=== PATIENT | male | born 1970 | race Caucasian/White ===

== ENCOUNTER 2016-09-15 14:33 | Emergency (ER) | payer MEDICARE ==
--- NOTE | 2016-09-15 15:21 | ERPHSYRPT ---
- History of Present Illness Time Seen by Provider: 09/15/16 15:16 Source: patient Exam Limitations: no limitations Patient Subjective Stated Complaint: Pt states he thinks he broke his left hand 2 days ago. Does not recall an injury but thinks he might have punched a wall in his sleep. Triage Nursing Assessment: Pt alert and oriented x3. skin pink warm and dry. afebrile. slight swelling noted to left hand. no bruising noted. radial pulse present and regular Physician History: Unsure of what happened to L hand. C/O L hand pain for past 2-3 days. Patient uninsured how he injured his left hand, but thinks that he might have hit a wall besides his bed during his sleep. Patient notes swelling and pain to the fifth metacarpal. States pain is worse especially with movement and using his hands. Denies any L wrist, elbow or shoulder injury. Occurred: days ago (3) Method of Injury: unknown Quality: intermittent, aching, dullness Severity of Pain-Max: moderate Severity of Pain-Current: moderate Extremities Pain Location: hand: left Modifying Factors: Improves With: immobilization (improves), movement (worsens) Associated Symptoms: none Allergies/Adverse Reactions: amoxicillin [Amoxicillin] Allergy (Severe, Verified 09/15/16 15:09) celecoxib [From Celebrex] Allergy (Severe, Verified 09/15/16 15:09) Penicillins Allergy (Severe, Verified 09/15/16 15:09) TROUBLE BREATHING Shellfish *RETIRED-09/04/12 [Shellfish] Allergy (Severe, Verified 09/15/16 15:09 ) Sulfa (Sulfonamide Antibiotics) [Sulfa(Sulfonamide Antibiotics)] Allergy (Severe , Verified 09/15/16 15:09) Rash ernesto Allergy (Verified 09/15/16 15:09) venom-honey bee [bee venom (honey bee)] Allergy (Verified 09/15/16 15:09) Home Medications: Etodolac 400 mg [Lodine 400 mg] 400 mg PO BID 10/10/13 [History] Gabapentin 600 mg PO QID 10/10/13 [History] Glyburide [Diabeta] 10 mg PO BID 10/10/13 [History] Metformin HCl 1000 mg [Glucophage 1000 MG] 1,000 mg PO BID 10/10/13 [History] Omeprazole 40 mg PO DAILY 10/10/13 [History] Canagliflozin [Invokana] 300 mg PO DAILY 06/25/14 [History] Hydroxyzine HCl 25 mg [Atarax 25 mg] 25 mg PO Q6H PRN PRN 06/25/14 [ History] Oxycodone HCl/Acetaminophen [Percocet 10-325 mg Tablet] 1 tab PO Q4-6HPRN PRN MDD 50mg 09/11/16 [History] Dulaglutide [Trulicity] 0.75 mg SQ WEEKLY 09/15/16 [History] Simvastatin [Zocor] 40 mg PO DAILY 09/15/16 [History] Hx Tetanus, Diphtheria Vaccination/Date Given: Yes (<10) Hx Influenza Vaccination/Date Given: No Hx Pneumococcal Vaccination/Date Given: No - Review of Systems Constitutional: No Fever, No Chills Eyes: No Symptoms Ears, Nose, & Throat: No Symptoms Respiratory: No Cough, No Dyspnea Cardiac: No Chest Pain, No Edema, No Syncope Abdominal/Gastrointestinal: No Abdominal Pain, No Nausea, No Vomiting, No Diarrhea Genitourinary Symptoms: No Dysuria Musculoskeletal: Other (L 5th MC swelling), No Back Pain, No Neck Pain Skin: No Rash Neurological: No Dizziness, No Focal Weakness, No Sensory Changes Psychological: No Symptoms Endocrine: No Symptoms All Other Systems: Reviewed and Negative - Past Medical History Pertinent Past Medical History: Yes Neurological History: Other ENT History: No Pertinent History Cardiac History: No Pertinent History, High Cholesterol Respiratory History: Sleep Apnea Endocrine Medical History: Diabetes Type II Musculoskeletal History: Arthritis, Fibromyalgia, Other GI Medical History: GERD History: No Pertinent History Psycho-Social History: Attention Deficit Disorder Male Reproductive Disorders: No Pertinent History Other Medical History: sleep apnea - insomnia - Past Surgical History Past Surgical History: Yes Neuro Surgical History: No Pertinent History Cardiac: No Pertinent History Respiratory: No Pertinent History Gastrointestinal: Hernia Repair Genitourinary: No Pertinent History Musculoskeletal: Joint Replacement, Orthopedic Surgery Male Surgical History: No Pertinent History Other Surgical History: knee x 2 NEDA - L shoulder - Social History Smoking Status: Former smoker How long have you smoked: 30 years Exposure to second hand smoke: No Alcohol Use: None Drug Use: none Patient Lives Alone: No Significant Family History: diabetes - Nursing Vital Signs Nursing Vital Signs: Initial Vital Signs Temperature 98.4 F Temperature Source Oral Pulse Rate 94 Respiratory Rate 16 Blood Pressure [Right Arm] 133/74 Pain Intensity 8 - Physical Exam General Appearance: alert Eyes, Ears, Nose, Throat Exam: moist mucous membranes Neck Exam: non-tender, supple Cardiovascular/Respiratory Exam: chest non-tender, normal breath sounds, regular rate/rhythm, no respiratory distress Abdominal Exam: non-tender, No guarding Back Exam: normal inspection, No vertebral tenderness Shoulder Exam: normal inspection, non-tender, no evidence of injury, normal ROM Elbow/Forearm Exam: normal inspection, non-tender, no evidence of injury, normal ROM Wrist Exam: normal inspection, non-tender, no evidence of injury, normal ROM Hand Exam: soft tissue tenderness (5th MC area), swelling (5th MC area) Neuro/Tendon Exam: normal sensation, normal motor functions Mental Status Exam: alert, oriented x 3, cooperative Skin Exam: normal color, warm, dry SpO2: 96 Oxygen Delivery: Room Air - Course Nursing assessment & vital signs reviewed: Yes - Radiology Exams Left Hand X-ray Interpretation: Teleradiologist Report, Negative, No Fracture Ordered Tests: Active Orders 24 hr Category Date Time Status HAND (MINIMUM 3 VIEWS) Stat Exams 09/15/16 15:21 Completed - Progress Progress: unchanged Counseled pt/family regarding: diagnosis, rad results - Departure Time of Disposition: 15:54 Departure Disposition: Home Clinical Impression: Contusion of left hand Condition: Stable Critical Care Time: No Instructions: Contusion Additional Instructions: Ice, elevate to decrease pain. Return for worse pain, swelling, numbness or any problems
--- NOTE | 2016-09-15 15:45 | XRAY ---
Indication: Fifth digit pain. No known injury. Comparison: February 11, 2008. 3 views of the left hand demonstrates new ring at the base of the fourth finger. Again no bony, articular, or soft tissue abnormalities.
[2016-09-15 16:27] VITALS: BP 132/83; PULSE 98; O2SAT 97
== END 2016-09-15 16:28 | disposition home or self-care (01) ==
LOC: ED 14:33
DX: S60.222A Contusion of left hand, initial encounter (principal)
CPT/HCPCS: 73130; 99282; 99283

== ENCOUNTER 2017-04-20 02:37 | Inpatient (IN) | payer MEDICARE ==
--- NOTE | 2017-04-20 03:21 | ERPHSYRPT ---
- History of Present Illness Time Seen by Provider: 04/20/17 03:00 Source: patient Exam Limitations: no limitations Patient Subjective Stated Complaint: pt states he has an abcess in his perineal area. Triage Nursing Assessment: pt alert and oriented. answers questions approp. pt ambulatory with steady gait noted. respirations nonlabored with lungs cta. skin pink warm and dry. redness and warmth noted to bo area with warmth noted. Physician History: Pt noticed small, painful lump in the perineal area about one week ago.He states it has increased in size and became painful over the past few days, denies fever, chills, abdominal pain, nausea, vomiting, difficulty urinating, or other complaints. He was started on Doxycycline by his doctor 4 days ago for suspected Lyme's disease. Timing/Duration: week(s) (1) Quality: painful Severity: moderate Location: perirectal Possible Causes: no cause identified Modifying Factors: Improves With: other (none) Associated Symptoms: denies symptoms Allergies/Adverse Reactions: amoxicillin [Amoxicillin] Allergy (Severe, Verified 04/20/17 02:57) celecoxib [From Celebrex] Allergy (Severe, Verified 04/20/17 02:57) Penicillins Allergy (Severe, Verified 04/20/17 02:57) TROUBLE BREATHING Shellfish *RETIRED-09/04/12 [Shellfish] Allergy (Severe, Verified 04/20/17 02:57 ) Sulfa (Sulfonamide Antibiotics) [Sulfa(Sulfonamide Antibiotics)] Allergy (Severe , Verified 04/20/17 02:57) Rash ernesto Allergy (Verified 04/20/17 02:57) venom-honey bee [bee venom (honey bee)] Allergy (Verified 04/20/17 02:57) Home Medications: Gabapentin 600 mg PO QID 10/10/13 [History] Glyburide [Diabeta] 10 mg PO BID 10/10/13 [History] Metformin HCl 1000 mg [Glucophage 1000 MG] 1,000 mg PO BID 10/10/13 [History] Omeprazole 40 mg PO DAILY 10/10/13 [History] Hydroxyzine HCl 25 mg [Atarax 25 mg] 25 mg PO Q6H PRN PRN 06/25/14 [ History] Simvastatin [Zocor] 40 mg PO DAILY 09/15/16 [History] Tizanidine HCl [Zanaflex] 1 - 2 tab PO Q8HPRN PRN 10/10/16 [History] Oxycodone HCl/Acetaminophen [Percocet 7.5-325 mg Tablet] 1 each PO Q4-6HPRN PRN 04/20/17 [History] Hx Tetanus, Diphtheria Vaccination/Date Given: Yes Hx Influenza Vaccination/Date Given: No Hx Pneumococcal Vaccination/Date Given: No Immunizations Up to Date: Yes - Review of Systems Constitutional: No Symptoms Skin: Other (perineal lump, possible abscess. ) All Other Systems: Reviewed and Negative - Past Medical History Pertinent Past Medical History: Yes Neurological History: Other ENT History: No Pertinent History Cardiac History: No Pertinent History, High Cholesterol, Hypertension Respiratory History: Sleep Apnea Endocrine Medical History: Diabetes Type II Musculoskeletal History: Arthritis, Fibromyalgia, Other GI Medical History: GERD History: No Pertinent History Psycho-Social History: Attention Deficit Disorder Male Reproductive Disorders: No Pertinent History Other Medical History: sleep apnea - insomnia - Past Surgical History Past Surgical History: Yes Neuro Surgical History: No Pertinent History Cardiac: No Pertinent History Respiratory: No Pertinent History Gastrointestinal: Hernia Repair Genitourinary: No Pertinent History Musculoskeletal: Joint Replacement, Orthopedic Surgery Male Surgical History: No Pertinent History Other Surgical History: knee x 2 NEDA - L shoulder - Social History Smoking Status: Former smoker How long have you smoked: 30 years Exposure to second hand smoke: No Alcohol Use: None Drug Use: none Patient Lives Alone: No Significant Family History: diabetes - Nursing Vital Signs Nursing Vital Signs: Initial Vital Signs Temperature 98.1 F 04/20/17 02:43 Pulse Rate 117 H 04/20/17 02:43 Respiratory Rate 18 04/20/17 02:43 Blood Pressure 173/103 04/20/17 02:43 O2 Sat by Pulse Oximetry 95 04/20/17 02:43 Pain Scale Pain Intensity 6 - Physical Exam General Appearance: no apparent distress Eye Exam: eyes nml inspection Ears, Nose, Throat Exam: normal ENT inspection Neck Exam: normal inspection, non-tender, supple Respiratory Exam: normal breath sounds, lungs clear Cardiovascular Exam: regular rate/rhythm, normal heart sounds, normal peripheral pulses Gastrointestinal/Abdomen Exam: soft, normal bowel sounds, No tenderness, No distention, No mass, No guarding Male Genitalia Exam: normal genitalia Rectal Exam: normal rectal tone, hemorrhoids (small external hemorrhoids, noninflamed), No mass Back Exam: normal inspection, No CVA tenderness Extremity Exam: normal inspection, No calf tenderness Neurologic Exam: alert, oriented x 3, cooperative, normal mood/affect Skin Exam: normal color, warm, dry, other (2-3 cm deep seated tender hard lump in the perineal area, little bit to the left from the midline, no skin redness, edema or lesion, no fluctuation.), No rash, No petechiae SpO2: 95 Oxygen Delivery: Room Air Procedures - Incision and Drainage Timeout: Performed Site: left Anesthesia: 1% Lidocaine cc's of anesthesia: 5 Blade Size: 15 I & D Procedure: betadine prep, sterile drapes applied, culture obtained, other (obtained few drops of pus with an 18 gauge needle, attempted to I&D but the abscess is deep seated towards the rectuim, unable to achieve good exploration in local anesthesia, after making 0.5 cm incision with a #15 scalpel, no severe bleeding noted, easily controlled, 1/4 minch packing placed, no pus obtained, was unable to reach the abscess with the scalpel and scissor after carfully dissecting the subcutaneous tissues with scissor and a needleholder.) Results: small amount pus Progress: Pt tolerated the procedure well, no severe bleeding, or injuries noticed. - CT Exams Pelvis CT Interpretation: Other (2.5 cm perianal/perineal abscess on noncontrast CT) Ordered Tests: Active Orders 24 hr Category Date Time Status PELVIS WITHOUT CONTRAST [CT] Stat Exams 04/20/17 03:07 Taken CBC W DIFF Stat Lab 04/20/17 03:25 Completed CMP Stat Lab 04/20/17 03:25 Completed Occult Blood,Stool Other Stat Lab 04/20/17 03:25 Completed PROTIME WITH INR Stat Lab 04/20/17 03:25 Completed UA W/ MICROSCOPIC Stat Lab 04/20/17 03:31 Completed Medication Summary Generic Name Dose Route Start Last Admin Trade Name Freq PRN Reason Stop Dose Admin Metronidazole 500 mg in 100 mls @ 200 mls/hr 04/20/17 05:19 04/20/17 05:31 Flagyl 500 Mg Ivpb IV 04/20/17 05:48 200 mls/hr STAT STA Administration Vancomycin HCl 1 gm in 250 mls @ 167 mls/hr 04/20/17 05:19 04/20/17 05:31 Vancomycin 1gm/ Ns 250ml IV 04/20/17 06:48 167 mls/hr STAT ONE Administration Morphine Sulfate 4 mg 04/20/17 05:19 Morphine Sulfate 4 Mg Inj IV 04/25/17 05:18 Q4H PRN PRN PAIN Discontinued Medications Generic Name Dose Route Start Last Admin Trade Name Freq PRN Reason Stop Dose Admin Metronidazole Confirm 04/20/17 05:28 Flagyl 500 Mg Ivpb Administered 04/20/17 05:29 Dose 500 mg in 100 mls @ ud IV .STK-MED ONE Vancomycin HCl Confirm 04/20/17 05:28 Vancomycin 1gm/ Ns 250ml Administered 04/20/17 05:29 Dose 250 mls @ ud IV .STK-MED ONE Lidocaine HCl Confirm 04/20/17 04:41 Xylocaine 1% Hcl 20 Ml Mdv Administered 04/20/17 04:42 Dose 5 ml .ROUTE .STK-MED ONE Ondansetron HCl 4 mg 04/20/17 05:19 Zofran 4 Mg/2 Ml Vial IV 04/20/17 05:20 STAT ONE Lab/Rad Data: Laboratory Result Diagrams 04/20/17 03:25 04/20/17 03:25 Laboratory Results 04/20/17 04/20/17 04/20/17 Range/Units 03:31 03:25 03:25 WBC (4.0-10.5) K/mm3 RBC (4.1-5.6) M/mm3 Hgb (12.5-18.0) gm/dl Hct (42-50) % MCV (78-100) fl MCH (26-32) pg MCHC (32-36) g/dl RDW (11.5-14.0) % Plt Count (150-450) K/mm3 MPV (6-9.5) fl Gran % (36.0-66.0) % Lymphocytes % (24.0-44.0) % Monocytes % (0.0-12.0) % Eosinophils % (0.00-5.0) % Basophils % (0.0-0.4) % Basophils # (0-0.4) INR 1.15 (0.8-3.0) Sodium (136-145) mEq/L Potassium (3.5-5.1) mEq/L Chloride (98-107) mEq/L Carbon Dioxide (21-32) mEq/L Anion Gap (5-15) MEQ/L BUN (9-20) mg/dL Creatinine (0.55-1.30) mg/dl Estimated GFR ML/MIN Glucose (70-110) MG/DL Calcium (8.5-10.1) mg/dL Total Bilirubin (0.2-1.0) mg/dL AST (15-37) U/L ALT (12-78) U/L Alkaline Phosphatase (46-116) U/L Serum Total Protein (6.4-8.2) gm/dL Albumin (3.4-5.0) g/dL Ur Collection Type VOID Urine Color YELLOW (YELLOW) Urine Appearance CLEAR (CLEAR) Urine pH 5.0 (5-6) Ur Specific [place] 1.020 (1.005-1.025) Urine Protein NEGATIVE (Negative) Urine Ketones SMALL (NEGATIVE) Urine Blood TRACE NON-HEM (0-5) Tomás/ul Urine Nitrite NEGATIVE (NEGATIVE) Urine Bilirubin NEGATIVE (NEGATIVE) Urine Urobilinogen NORMAL (0-1) mg/dL Ur Leukocyte Esterase NEGATIVE (NEGATIVE) Urine Microscopic RBC 2-5 (0-2) /HPF Urine Microscopic WBC 0-2 (0-5) /HPF Ur Epithelial Cells FEW (FEW) /HPF Urine Bacteria FEW (NEGATIVE) /HPF Urine Mucus SLIGHT (NEGATIVE) /HPF Urine Culture Reflexed NO (NO) Urine Glucose 1000 (NEGATIVE) mg/dL Stool Occult Blood NEGATIVE (Negative) Specimen Received 04/20/17 0330 04/20/17 04/20/17 Range/Units 03:25 03:25 WBC 10.9 H (4.0-10.5) K/mm3 RBC 4.67 (4.1-5.6) M/mm3 Hgb 13.6 (12.5-18.0) gm/dl Hct 39.7 L (42-50) % MCV 85.0 (78-100) fl MCH 29.1 (26-32) pg MCHC 34.3 (32-36) g/dl RDW 12.8 (11.5-14.0) % Plt Count 259 (150-450) K/mm3 MPV 9.2 (6-9.5) fl Gran % 61.0 (36.0-66.0) % Lymphocytes % 24.9 (24.0-44.0) % Monocytes % 12.0 (0.0-12.0) % Eosinophils % 1.8 (0.00-5.0) % Basophils % 0.3 (0.0-0.4) % Basophils # 0.03 (0-0.4) INR (0.8-3.0) Sodium 137 (136-145) mEq/L Potassium 3.5 (3.5-5.1) mEq/L Chloride 101 (98-107) mEq/L Carbon Dioxide 25.5 (21-32) mEq/L Anion Gap 14.1 (5-15) MEQ/L BUN 8 L (9-20) mg/dL Creatinine 0.94 (0.55-1.30) mg/dl Estimated GFR > 60 ML/MIN Glucose 272 H (70-110) MG/DL Calcium 9.3 (8.5-10.1) mg/dL Total Bilirubin 0.40 (0.2-1.0) mg/dL AST 11 L (15-37) U/L ALT 48 (12-78) U/L Alkaline Phosphatase 49 (46-116) U/L Serum Total Protein 7.6 (6.4-8.2) gm/dL Albumin 3.5 (3.4-5.0) g/dL Ur Collection Type Urine Color (YELLOW) Urine Appearance (CLEAR) Urine pH (5-6) Ur Specific [place] (1.005-1.025) Urine Protein (Negative) Urine Ketones (NEGATIVE) Urine Blood (0-5) Tomás/ul Urine Nitrite (NEGATIVE) Urine Bilirubin (NEGATIVE) Urine Urobilinogen (0-1) mg/dL Ur Leukocyte Esterase (NEGATIVE) Urine Microscopic RBC (0-2) /HPF Urine Microscopic WBC (0-5) /HPF Ur Epithelial Cells (FEW) /HPF Urine Bacteria (NEGATIVE) /HPF Urine Mucus (NEGATIVE) /HPF Urine Culture Reflexed (NO) Urine Glucose (NEGATIVE) mg/dL Stool Occult Blood (Negative) Specimen Received - Progress Progress: improved Progress Note: 04/20/17 05:38 Pt has been afebrile, no sign of severe pain or distress, I discussed our findings with DR Menezes, general surgeon, he agreed to see patient today. I also called Dr Hamilton, who is covering Dr Morton, discussed the results and patients current condition, he agreed to admit him to medical surgical bed. Pt and his were informed, they agreed. Discussed with : Maryanne Hamilton Will see patient in: hospital (full admit) - Departure Time of Disposition: 05:40 Departure Disposition: In-patient Admission Clinical Impression: Abscess of deep perineal space Condition: Stable Critical Care Time: No Referrals: TERESA MORTON [Primary Care Provider] -
[2017-04-20 03:29] LABS: BASOPHIL % 0.3 % (0.0-0.4); Eosinophil % 1.8 % (0.00-5.0); Lymphocytes % 24.9 % (24.0-44.0); Mean Corpuscular Hemoglobin 29.1 pg (26-32); Mean Platelet Volume 9.2 fl (6-9.5); Platelet Count 259 K/mm3 (150-450); Red Blood Count 4.67 M/mm3 (4.1-5.6); Red Cell Distribution Width 12.8 % (11.5-14.0); White Blood Count 10.9 K/mm3 (4.0-10.5)
[2017-04-20 03:43] LABS: Bilirubin NEGATIVE (NEGATIVE); Blood TRACE NON-HEM Ery/ul (0-5); COMPLETE URINE MICROSCOPIC? YES; Collection Type VOID; Glucose 1000 mg/dL (NEGATIVE); Leukocyte Esterase NEGATIVE (NEGATIVE)
[2017-04-20 03:44] LABS: ADD URINE CULTURE? NO (NO); Bacteria FEW /HPF (NEGATIVE); Epithelial Cells FEW /HPF (FEW); Mucus SLIGHT /HPF (NEGATIVE); WBC 0-2 /HPF (0-5)
[2017-04-20 03:49] LABS: ALBUMIN 3.5 g/dL (3.4-5.0); ALKALINE PHOSPHATASE 49 U/L (46-116); ANION GAP 14.1 MEQ/L (5-15); BLOOD UREA NITROGEN 8 mg/dL (9-20); CHLORIDE 101 mEq/L (98-107); Carbon Dioxide 25.5 mEq/L (21-32); Glucose 272 MG/DL (70-110); Potassium 3.5 mEq/L (3.5-5.1); SGOT/AST 11 U/L (15-37); SGPT/ALT 48 U/L (12-78); SODIUM 137 mEq/L (136-145); Total Protein 7.6 gm/dL (6.4-8.2)
[2017-04-20 03:51] LABS: INR 1.15 (0.8-3.0); PROTIME 12.8 SECONDS (8.83-12.87)
[2017-04-20] MEDS ORDERED: XYLOCAINE 1% HCL 20 ML MDV ONE (04:41)
[2017-04-20] MEDS ORDERED: Vancomycin 1GM/ Ns 250ML*** 1 GM/250 ML IVPB IV ONE (05:19)
[2017-04-20] MEDS ORDERED: FLAGYL 500 MG IVPB 500 MG/100 ML BAG IV STA (05:19)
[2017-04-20] MEDS ORDERED: Zofran 4 MG/2 ML VIAL IV ONE (05:19)
[2017-04-20] MEDS ORDERED: MORPHINE SULFATE 4 MG INJ IV PRN (05:19)
[2017-04-20] MEDS ORDERED: FLAGYL 500 MG IVPB 500 MG/100 ML BAG IV ONE (05:28)
[2017-04-20] MEDS ORDERED: Vancomycin 1GM/ Ns 250ML*** 250 ML IV ONE (05:28)
[2017-04-20] MEDS ORDERED: MORPHINE SULFATE 4 MG INJ ONE (05:37)
[2017-04-20] MEDS ORDERED: Zofran 4 MG/2 ML VIAL IV PRN (07:00)
[2017-04-20] MEDS: Sodium Chloride 0.9% 1000 ML 1,000 ML IV SCH ×2 (08:35→21:46)
--- NOTE | 2017-04-20 09:21 | XRAY ---
Indication: Perineal abscess. Pain. Multiple contiguous axial images obtained through the pelvis without contrast. Known IV contrast allergy. Comparison: None. In the left perineal/perianal region, there is a small focus of subcutaneous induration measuring 2.4 x 1.3 cm in axial dimension. Tiny fluid and air bubble present concerning for abscess. There are a few small bilateral inguinal lymph nodes, none pathologically enlarged. Visualized noncontrasted bowel loops appear nonobstructed. Normal appendix. Visualized inferior liver, inferior kidneys, ureters, and bladder appear unremarkable for noncontrast exam. Mild aortoiliac calcifications without aneurysm. No intrapelvic free fluid/air. Osseous structures intact. Impression: Small left perineal/perianal abscess as detailed. Comment: Preliminary interpretation was made by [facility]. No discrepancy. CT DI 23.69
--- NOTE | 2017-04-20 09:22 | PCM.HP ---
History of Present Illness - Chief Complaint Chief Complaint: Perineal Abscess History of Present Illness: is a 46 year old male diabetic who sees Dr Morton, he has had pain, swelling and tenderness behind his scortum for the past week. no fever or drainage, denies cough, no chest pain or shortness of breath. - Review of Systems Constitutional: No Fever, No Chills Respiratory: No Cough, No Short Of Breath Cardiac: No Chest Pain, No Edema, No Syncope Abdominal/Gastrointestinal: No Abdominal Pain, No Nausea, No Vomiting, No Diarrhea Skin: Other (abscess behind scrotum) All Other Systems: Reviewed and Negative Medications & Allergies Home Medications: Home Medication List Gabapentin 600 mg PO QID 10/10/13 [History Confirmed 04/20/17] Glyburide [Diabeta] 10 mg PO BID 10/10/13 [History Confirmed 04/20/17] Metformin HCl 1000 mg [Glucophage 1000 MG] 1,000 mg PO BID 10/10/13 [History Confirmed 04/20/17] Omeprazole 40 mg PO DAILY 10/10/13 [History Confirmed 04/20/17] Hydroxyzine HCl 25 mg [Atarax 25 mg] 25 mg PO Q6H PRN PRN 06/25/14 [ History Confirmed 04/20/17] Simvastatin [Zocor] 40 mg PO DAILY 09/15/16 [History Confirmed 04/20/17] Tizanidine HCl [Zanaflex] 1 - 2 tab PO Q8HPRN PRN 10/10/16 [History Confirmed ] Oxycodone HCl/Acetaminophen [Percocet 7.5-325 mg Tablet] 1 each PO Q4-6HPRN PRN 04/20/17 [History Confirmed 04/20/17] Allergies/Adverse Reactions: Allergies Allergy/AdvReac Type Severity Reaction Status Date / Time amoxicillin [Amoxicillin] Allergy Severe Verified 04/20/17 02:57 celecoxib [From Celebrex] Allergy Severe Verified 04/20/17 02:57 Penicillins Allergy Severe TROUBLE Verified 04/20/17 02:57 BREATHING Shellfish *RETIRED-09/04/12 Allergy Severe Verified 04/20/17 02:57 [Shellfish] Sulfa (Sulfonamide Allergy Severe Rash Verified 04/20/17 02:57 Antibiotics) [Sulfa(Sulfonamide Antibiotics)] ernesto Allergy Verified 04/20/17 02:57 venom-honey bee Allergy Verified 04/20/17 02:57 [bee venom (honey bee)] - Past Medical History Past Medical History: Yes Neurological History: Other ENT History: No Pertinent History Cardiac History: No Pertinent History, High Cholesterol, Hypertension Respiratory History: Sleep Apnea Endocrine Medical History: Diabetes Type II Musculoskelatal History: Arthritis, Fibromyalgia, Other GI Medical History: GERD History: No Pertinent History Pyscho-Social History: Attention Deficit Disorder Male Reproductive Disorders: No Pertinent History Comment: sleep apnea - insomnia - Past Surgical History Past Surgical History: Yes Neuro Surgical History: No Pertinent History Cardiac History: No Pertinent History Respiratory Surgery: No Pertinent History GI Surgical History: Hernia Repair Genitourinary Surgical Hx: No Pertinent History Musculskeletal Surgical Hx: Joint Replacement, Orthopedic Surgery Male Surgical History: No Pertinent History Other Surgical History: knee x 2 NEDA - L shoulder - Social History Smoking Status: Former smoker How long have you smoked: quit 6 yea Exposure to second hand smoke: No Alcohol: None Drug Use: none Significant Family History: diabetes - Physical Exam Vital Signs: Vital Signs - 24 hr Temp Pulse Resp BP Pulse Ox 04/20/17 07:40 98.1 F 98 H 132/82 95 04/20/17 05:41 95 04/20/17 05:09 98 H 18 150/88 98 04/20/17 03:59 112 H 18 150/87 95 04/20/17 02:43 98.1 F 117 H 18 173/103 95 General Appearance: no apparent distress, alert Eye Exam: PERRL/EOMI, eyes nml inspection Respiratory Exam: normal breath sounds, lungs clear, No respiratory distress Cardiovascular Exam: regular rate/rhythm, normal heart sounds, normal peripheral pulses Gastrointestinal/Abdomen Exam: soft, normal bowel sounds, No tenderness, No mass Skin Exam: other (indurated 5cm area perineum, open in center with iodoform packing present. scant bloody drainage present) Assessment/Plan (1) Abscess of deep perineal space Current Visit: Yes Status: Acute Assessment & Plan: vanc and flagyl, surgical consult pending. wound culture pending. Code(s): N34.0 - URETHRAL ABSCESS (2) Diabetes mellitus type 2, insulin dependent Current Visit: No Status: Acute Assessment & Plan: sliding scale insulin at this time. Code(s): E11.9 - TYPE 2 DIABETES MELLITUS WITHOUT COMPLICATIONS; Z79.4 - RESIDENTIAL (CURRENT) USE OF INSULIN (3) Obstructive sleep apnea Current Visit: Yes Status: Acute Code(s): G47.33 - OBSTRUCTIVE SLEEP APNEA ( ADULT) (PEDIATRIC)
[2017-04-20] MEDS ORDERED: TIZANIDINE HCL PO PRN (10:00)
[2017-04-20] MEDS ORDERED: NON-FORMULARY ITEM (Oxycodone Hcl/Acetaminophen [Percocet 7.5-325 Mg Tablet] 1 EACH) PO PRN (10:00)
[2017-04-20] MEDS ORDERED: NON-FORMULARY ITEM (Gabapentin [Gabapentin] 600 MG) PO SCH (10:00)
[2017-04-20] MEDS ORDERED: ATARAX 25 MG PO PRN (10:00)
[2017-04-20] MEDS ORDERED: NON-FORMULARY ITEM (Simvastatin [Zocor] 40 MG) PO SCH (10:00)
[2017-04-20] MEDS ORDERED: NON-FORMULARY ITEM (Omeprazole [Omeprazole] 40 MG) PO SCH (10:00)
[2017-04-20] MEDS ORDERED: Zanaflex 4 MG PO PRN (10:07)
[2017-04-20 10:20] LABS: Mean Cell Volume 86.1 fl (78-100); Mean Platelet Volume 9.3 fl (6-9.5); Platelet Count 248 K/mm3 (150-450); Red Blood Count 4.66 M/mm3 (4.1-5.6); White Blood Count 10.3 K/mm3 (4.0-10.5)
[2017-04-20 10:43] LABS: ANION GAP 13.9 MEQ/L (5-15); BLOOD UREA NITROGEN 9 mg/dL (9-20); CHLORIDE 102 mEq/L (98-107); Carbon Dioxide 24.9 mEq/L (21-32); Glucose 235 MG/DL (70-110); Potassium 3.5 mEq/L (3.5-5.1); SODIUM 137 mEq/L (136-145)
[2017-04-20] MEDS: NEURONTIN 300 MG PO SCH ×4 (11:53→21:46)
[2017-04-20] MEDS: Protonix 40MG Tablet PO SCH (11:53)
[2017-04-20] MEDS: ZOCOR 20MG PO SCH (11:53)
[2017-04-20] MEDS: FLAGYL 500 MG IVPB 500 MG/100 ML BAG IV SCH ×2 (11:57→18:02)
[2017-04-20] MEDS: MORPHINE SULFATE 4 MG INJ IV PRN (12:16)
[2017-04-20] MEDS: VANCOCIN 1 GM VIAL*** 1 GM in Sodium Chloride 0.9% 250 ML 250 ML IV SCH ×2 (14:17→21:46)
--- NOTE | 2017-04-20 16:49 | CONS ---
CONSULT DATE: 04/20/17 HISTORY OF PRESENT ILLNESS: This is a gentleman who has been having 1-1 1/2 weeks of worsening perineal pain. He did have a previous, very minor perineal infection in the past which resolved without surgery. He did go on doxycycline and this did not help the pain or swelling and so he presented to the Emergency Room. He was found to have a perineal abscess. This was drained in the Emergency Room. PAST MEDICAL HISTORY: Fibromyalgia. Patient takes Percocet for this. Diabetes, neuropathy. PAST SURGICAL HISTORY: Hernia surgery, bilateral knee surgery, left shoulder surgery. HOME MEDICATIONS: Gabapentin, metformin, glyburide, omeprazole, Percocet, tizanidine, ibuprofen. FAMILY HISTORY: Mother had ovarian cancer. Aunt had lung cancer. SOCIAL HISTORY: No tobacco. No alcohol use. No family or personal history of bleeding or anesthesia issues. PHYSICAL EXAMINATION: GENERAL: No acute distress. ABDOMEN: Soft, nontender. CVS: Regular rate and rhythm. PULMONARY: Nonlabored. Perineal area does show an I&D site packed. There is very mild amount of induration here. There is no fluctuance. I do not feel any fluid cavity for further drainage. I did discuss with the patient that he may need possible surgery if he does not improve with antibiotics, but the site does look appropriately drained. Patient understands. He would like to continue following with the current treatment and if the site worsens or does not improve, then we will consider further surgery. We will keep him on IV antibiotics and he can have a regular diet today.
[2017-04-20] MEDS: PERCOCET TABLET 5/325MG PO PRN ×2 (16:50→21:45)
[2017-04-20] MEDS: NovoLOG Insulin SQ PRN (16:51)
[2017-04-21] MEDS: FLAGYL 500 MG IVPB 500 MG/100 ML BAG IV SCH ×2 (00:46→06:06)
[2017-04-21] MEDS: MORPHINE SULFATE 4 MG INJ IV PRN (04:45)
[2017-04-21] MEDS: VANCOCIN 1 GM VIAL*** 1 GM in Sodium Chloride 0.9% 250 ML 250 ML IV SCH ×2 (06:03→06:45)
[2017-04-21] MEDS: ZOCOR 20MG PO SCH (08:28)
[2017-04-21] MEDS: NEURONTIN 300 MG PO SCH (08:28)
[2017-04-21] MEDS: Protonix 40MG Tablet PO SCH (08:28)
[2017-04-21] MEDS: PERCOCET TABLET 5/325MG PO PRN (08:39)
--- NOTE | 2017-04-21 08:58 | PCM.NOTE ---
Date and Time: 04/21/17 0856 Subjective Assessment: no new complaints, still has some pain but believes it is improved. no fever, no surgical intervention required Objective Exam General Appearance: no apparent distress, alert Respiratory Exam: normal breath sounds, lungs clear, No respiratory distress Cardiovascular Exam: regular rate/rhythm, normal heart sounds Gastrointestinal/Abdomen Exam: soft, other (5cm area of induration surrounding I and D site with packing in place, scant bloody drainage present.), No tenderness, No mass OBJECTIVE DATA Vital Signs: Vital Signs - 24 hr Temp Pulse Resp BP Pulse Ox 04/21/17 07:21 98.1 F 98 H 20 142/76 96 04/21/17 05:00 99.8 F 113 H 21 147/76 96 04/21/17 00:00 98.5 F 102 H 18 127/67 96 04/20/17 20:00 98.2 F 112 H 16 143/79 95 04/20/17 15:30 97.5 F 106 H 16 135/73 95 04/20/17 11:36 99.5 F 118 H 22 139/73 95 Pain Assessment - Last Documented Pain Intensity 6 Pain Scale Used 0-10 Pain Scale Intake and Output: Intake & Output 04/18/17 04/19/17 04/20/17 04/21/17 11:59 11:59 11:59 11:59 Intake Total 0 4239 Balance 0 4239 Weight 115.666 kg Lab Results: Accuchecks Date 04/20/17 Date 04/20/17 Date 04/20/17 Time 16:30 Time 16:30 Time 12:00 Accucheck Value: 297 Accucheck Value: 225 Lab Results-Last 24 Hours 04/20/17 04/20/17 Range/Units 10:00 10:00 WBC 10.3 (4.0-10.5) K/mm3 RBC 4.66 (4.1-5.6) M/mm3 Hgb 13.5 (12.5-18.0) gm/dl Hct 40.1 L (42-50) % MCV 86.1 (78-100) fl MCH 29.0 (26-32) pg MCHC 33.7 (32-36) g/dl RDW 13.0 (11.5-14.0) % Plt Count 248 (150-450) K/mm3 MPV 9.3 (6-9.5) fl Sodium 137 (136-145) mEq/L Potassium 3.5 (3.5-5.1) mEq/L Chloride 102 (98-107) mEq/L Carbon Dioxide 24.9 (21-32) mEq/L Anion Gap 13.9 (5-15) MEQ/L BUN 9 (9-20) mg/dL Creatinine 0.85 (0.55-1.30) mg/dl Estimated GFR > 60 ML/MIN Glucose 235 H (70-110) MG/DL Calcium 9.1 (8.5-10.1) mg/dL Prealbumin 20.2 (18.0-35.7) mg/dL Assessment/Plan (1) Abscess of deep perineal space Current Visit: Yes Status: Acute Assessment & Plan: on vanc/flagyl, wound culture pending. appreciate surgery input. needs to stay and wait on wound culture results in my opinion prior to discharge. continue current management. Code(s): N34.0 - URETHRAL ABSCESS (2) Diabetes mellitus type 2, insulin dependent Current Visit: No Status: Acute Assessment & Plan: on SSI at this time. Code(s): E11.9 - TYPE 2 DIABETES MELLITUS WITHOUT COMPLICATIONS; Z79.4 - GROUP HOME (CURRENT) USE OF INSULIN (3) Obstructive sleep apnea Current Visit: Yes Status: Acute Code(s): G47.33 - OBSTRUCTIVE SLEEP APNEA ( ADULT) (PEDIATRIC)
[2017-04-21] MEDS: NovoLOG Insulin SQ PRN (09:03)
[2017-04-21 10:56] VITALS: BP 144/80; PULSE 97; O2SAT 98
== END 2017-04-21 11:17 | disposition home or self-care (01) | DRG 690 ==
LOC: ED 02:37 → MED SURG 06:30
PROVIDERS: ADMIT Family Medicine; ATTEND Family Medicine
DX: N34.0 Urethral abscess (principal); E11.9 Type 2 diabetes mellitus without complications; Z79.4 Long term (current) use of insulin; I10 Essential (primary) hypertension; G47.33 Obstructive sleep apnea (adult) (pediatric); M19.90 Unspecified osteoarthritis, unspecified site; M79.7 Fibromyalgia; K21.9 Gastro-esophageal reflux disease without esophagitis; F98.8 Other specified behavioral and emotional disorders with onset usually occurring in childhood and adolescence; G47.00 Insomnia, unspecified; Z79.899 Other long term (current) drug therapy
CPT/HCPCS: 36415; 72192; 80048; 80053; 81000; 82272; 82962; 84134; 85025; 85027; 85610; 87070; 87077; 87186; 96365; 96367; 99285; J2270; J3370; A9270-GY

== ENCOUNTER 2018-01-31 23:19 | Emergency (ER) | payer MEDICARE, OTHER ==
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
[2018-02-01 00:32] VITALS: BP 136/76; PULSE 78; O2SAT 98
--- NOTE | 2018-02-01 08:58 | XRAY ---
Indication: Left knee pain. Comparison: February 10, 2007. 3 views of the left knee demonstrates interval ACL reconstructive surgery with stable posterior fabella. No other bony, articular, or soft tissue abnormalities.
== END 2018-02-01 00:21 | disposition home or self-care (01) ==
LOC: ED 23:19
DX: S86.912A Strain of unspecified muscle(s) and tendon(s) at lower leg level, left leg, initial encounter (principal); M25.562 Pain in left knee; Z79.899 Other long term (current) drug therapy; E11.9 Type 2 diabetes mellitus without complications; X50.1XXA Overexertion from prolonged static or awkward postures, initial encounter; Y93.F9 Activity, other caregiving; Y99.0 Civilian activity done for income or pay; Z79.4 Long term (current) use of insulin
CPT/HCPCS: 73562; 99283

== ENCOUNTER 2019-03-17 21:21 | Emergency (ER) | payer MEDICARE ==
--- NOTE | 2019-03-17 21:54 | ERPHSYRPT ---
- History of Present Illness Time Seen by Provider: 03/17/19 21:35 Source: patient, EMS Exam Limitations: no limitations Patient Subjective Stated Complaint: Pt states he got dizzy and fell backwards and hit his back and head. States floors are concrete. Unsure if he lost consciousness. Doesn't remember falling but remembers being on the floor Triage Nursing Assessment: Pt transported to ER by ambulance. Transferred to bed. Alert & oriented. Respirations easy and non-labored. No knot or bruising present on head. No visible signs of injury on back Physician History: Patient felt dizzy when he went from a sitting to standing position, fell back and hit his head and back prior to coming into the emergency department Witnessed: by family Prior Episodes: single episode today Timing/Duration: today, resolved prior to arrival, sudden Precipitating Factors: lightheadedness Context: standing Loss of Consciousness: brief (seconds) Charcter of event(s): collapsed Allergies/Adverse Reactions: amoxicillin [Amoxicillin] Allergy (Severe, Verified 04/20/17 02:57) celecoxib [From Celebrex] Allergy (Severe, Verified 04/20/17 02:57) Penicillins Allergy (Severe, Verified 04/20/17 02:57) TROUBLE BREATHING Shellfish *RETIRED-09/04/12 [Shellfish] Allergy (Severe, Verified 04/20/17 02:57 ) Sulfa (Sulfonamide Antibiotics) [Sulfa(Sulfonamide Antibiotics)] Allergy (Severe , Verified 04/20/17 02:57) Rash clindamycin Allergy (Verified 01/31/18 23:36) duloxetine [From Cymbalta] Allergy (Verified 01/31/18 23:36) ernesto Allergy (Verified 04/20/17 02:57) milnacipran [From Savella] Allergy (Verified 01/31/18 23:36) venom-honey bee [bee venom (honey bee)] Allergy (Verified 04/20/17 02:57) Home Medications: Gabapentin 600 mg PO QID 10/10/13 [History] Metformin HCl 1000 mg [Glucophage 1000 MG] 1,000 mg PO BID 10/10/13 [History] Omeprazole 40 mg PO DAILY 10/10/13 [History] Hydroxyzine HCl 25 mg [Atarax 25 mg] 25 mg PO Q6H PRN PRN 06/25/14 [ History] Simvastatin [Zocor] 40 mg PO DAILY 09/15/16 [History] Tizanidine HCl [Zanaflex] 1 - 2 tab PO Q8HPRN PRN 10/10/16 [History] Oxycodone HCl/Acetaminophen [Percocet 7.5-325 mg Tablet] 1 each PO Q4-6HPRN PRN 04/20/17 [History] Insulin Glargine,Hum.rec.anlog [Lantus] 30 units SQ HS 01/31/18 [History] Canagliflozin [Invokana] 400 mg PO HS 03/17/19 [History] Glipizide 5 mg [Glucotrol 5 MG] 10 mg PO BID 03/17/19 [History] Hx Tetanus, Diphtheria Vaccination/Date Given: Yes Hx Influenza Vaccination/Date Given: No Hx Pneumococcal Vaccination/Date Given: No - Past Medical History Pertinent Past Medical History: Yes Neurological History: Other ENT History: No Pertinent History Cardiac History: No Pertinent History, High Cholesterol, Hypertension Respiratory History: Sleep Apnea Endocrine Medical History: Diabetes Type II Musculoskeletal History: Arthritis, Fibromyalgia, Other GI Medical History: GERD History: No Pertinent History Psycho-Social History: Attention Deficit Disorder Male Reproductive Disorders: No Pertinent History Other Medical History: sleep apnea - insomnia - Past Surgical History Past Surgical History: Yes Neuro Surgical History: No Pertinent History Cardiac: No Pertinent History Respiratory: No Pertinent History Gastrointestinal: Hernia Repair Genitourinary: No Pertinent History Musculoskeletal: Joint Replacement, Orthopedic Surgery Male Surgical History: No Pertinent History Other Surgical History: knee x 2 NEDA - L shoulder - Social History Smoking Status: Former smoker How long have you smoked: quit many Exposure to second hand smoke: No Alcohol Use: None Drug Use: none Patient Lives Alone: No Significant Family History: diabetes - Review of Systems Constitutional: No Fever, No Chills, No Fatigue, No Lethargy Eyes: No Eye Pain, No Vision Changes Ears, Nose, & Throat: No Nose Pain, No Nose Congestion, No Mouth Swelling, No Loose Teeth, No Throat Pain, No Throat Swelling, No Hoarse Respiratory: No Cough, No Dyspnea Cardiac: Syncope, No Chest Pain, No Edema, No Palpitations Abdominal/Gastrointestinal: No Abdominal Pain, No Nausea, No Vomiting, No Hematemesis, No Hematochezia, No Melena Genitourinary Symptoms: No Dysuria, No Frequency, No Hematuria, No Flank Pain Musculoskeletal: Back Pain, Fall, No Arthralgias, No Neck Pain, No Deformity, No Myalgias Skin: No Induration, No Pruritis, No Rash Neurological: No Focal Weakness, No Headache, No Parasthesia, No Tremors Psychological: No Anxiety, No Emotional Lability Endocrine: No Excessive Sweating Hematologic/Lymphatic: No Easy Bleeding, No Easy Bruising All Other Systems: Reviewed and Negative Physical Exam - Nursing Vital Signs Nursing Vital Signs: Initial Vital Signs Temperature 98.4 F 03/17/19 21:24 Pulse Rate 100 H 03/17/19 21:24 Respiratory Rate 23 03/17/19 21:24 Blood Pressure 166/104 03/17/19 21:24 O2 Sat by Pulse Oximetry 96 03/17/19 21:24 Pain Scale Pain Intensity 8 - Mar[place]uy Coma Scale Best Eye Response (Marichuy): (4) open spontaneously Best Verbal Response ([place]): (5) oriented Best Motor Response (Marichuy): (6) obeys commands Mar[place]uy Total: 15 - Physical Exam General Appearance: no apparent distress, alert Eye Exam: bilateral eye: normal inspection, PERRL, EOMI Ears, Nose, Throat Exam: normal ENT inspection, TMs normal, pharynx normal, moist mucous membranes Neck Exam: normal inspection, non-tender, supple, full range of motion, No meningismus, No Brudzinski, No limited range of motion, No lymphadenopathy, No subcutaneous emphysema, No midline tenderness Respiratory: normal breath sounds, lungs clear, airway intact, No chest tenderness, No respiratory distress Cardiovascular: regular rate/rhythm, normal heart sounds, normal peripheral pulses, capillary refill <2 sec Gastrointestinal: soft, normal bowel sounds, tenderness, No distention, No mass Back Exam: normal inspection, point tenderness (left lateral), No CVA tenderness , No vertebral tenderness Extremity Exam: normal inspection, normal range of motion, pelvis stable, tenderness (left posterior iliac crest), No contusions, No lacerations, No penetrations, No derik's sign, No swelling Peripheral Pulses: dorsalis-pedis (R): 2+, dorsalis-pedis (L): 2+ Mental Status: alert, oriented x 3, cooperative, No intoxicated appearance, No 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 Exam: normal hearing, normal speech, PERRL, No abnormal gag reflex, No facial asymmetry, No gaze palsy, No tongue deviation to R, No tongue deviation to L Coordination/Gait: normal cerebellar function Motor/Sensory: no motor deficit, no sensory deficit, No sensory deficit, No weak motor strength RUE, No weak motor strength LUE, No weak motor strength RLE , No weak motor strength LLE DTR: ankle (R): 2+, ankle (L): 2+ Skin Exam: normal color, warm, No jaundice, No abrasion, No laceration SpO2 Interpretation: normal SpO2: 96 O2 Delivery: Room Air - Course Nursing assessment & vital signs reviewed: Yes EKG Interpreted by Me: RATE (82), Sinus Rhythm, NORMAL AXIS, NORMAL INTERVALS, NORMAL QRS, NORMAL ST-T, Other (negative previous EKG for comparison) - Radiology Exams Chest X-ray Interpretation: Interpreted by me, Reviewed by me, Negative, No Fracture, No Pneumonia, No Pneumothorax, Nml Heart Size, No Infiltrates, Nml Mediastinum L-Spine X-ray Interpretation: Interpreted by me, Reviewed by me, Negative, No Fracture, Nml Alignment, Nml Soft Tissues Pelvis X-ray Interpretation: Interpreted by me, Reviewed by me, No Fracture, Nml Alignment, Nml Soft Tissues - CT Exams Head CT Interpretation: Negative, No Fracture, No/Intracranial Hemorrhag Ordered Tests: Active Orders 24 hr Category Date Time Status Diesel Electrician STAT Care 03/17/19 21:55 Active EKG-ER Only STAT Care 03/17/19 21:54 Active IV Insertion STAT Care 03/17/19 21:54 Active Orthostatic Vital Signs STAT Care 03/17/19 21:55 Active Pulse Oximetry (ED) STAT Care 03/17/19 21:54 Active CHEST 2 VIEWS (PA AND LAT) Stat Exams 03/17/19 21:55 Taken HEAD WITHOUT CONTRAST [CT] Stat Exams 03/17/19 22:08 Taken LUMBAR LIMITED (2 OR 3 VIEWS) Stat Exams 03/17/19 21:56 Taken PELVIS (1 OR 2 VIEWS) Stat Exams 03/17/19 21:56 Taken CBC W DIFF Stat Lab 03/17/19 23:01 Completed CK-Creatinine Phosphokinase Stat Lab 03/17/19 23:01 Completed CMP Stat Lab 03/17/19 23:01 Completed MAG [MAGNESIUM] Stat Lab 03/17/19 23:01 Completed NT PRO BNP Stat Lab 03/17/19 23:01 Completed PROTIME WITH INR Stat Lab 03/17/19 23:01 Completed PTT Stat Lab 03/17/19 23:01 Completed TROPONIN Q3H Lab 03/17/19 23:01 Completed TROPONIN Q3H Lab 03/18/19 01:00 Completed TROPONIN Q3H Lab 03/18/19 04:00 Ordered TROPONIN Q3H Lab 03/18/19 07:00 Ordered TROPONIN Q3H Lab 03/18/19 10:00 Ordered Urine Triage Profile Stat Lab 03/17/19 23:10 Completed Medication Summary Discontinued Medications Generic Name Dose Route Start Last Admin Trade Name Freq PRN Reason Stop Dose Admin Diphenhydramine HCl 25 mg 03/17/19 22:07 03/17/19 22:30 Benadryl 50 Mg/Ml IV 03/17/19 22:08 Not Given STAT ONE Diphenhydramine HCl 25 mg 03/17/19 22:47 03/17/19 22:58 Benadryl 50 Mg/Ml IV 03/17/19 22:48 Not Given STAT ONE Sodium Chloride 1,000 mls @ 999 mls/hr 03/17/19 21:54 03/17/19 22:29 Sodium Chloride 0.9% 1000 Ml IV 03/17/19 22:54 999 mls/hr .Q1H1M STA Administration Sodium Chloride Confirm 03/17/19 22:26 Sodium Chloride 0.9% 1000 Ml Administered 03/17/19 22:27 Dose 1,000 mls @ ud .ROUTE .STK-MED ONE Morphine Sulfate 4 mg 03/17/19 22:07 03/17/19 22:30 Morphine Sulfate 4 Mg Inj IV 03/17/19 22:08 Not Given STAT ONE Morphine Sulfate 4 mg 03/17/19 22:47 03/17/19 22:51 Morphine Sulfate 4 Mg Inj IV 03/17/19 22:48 4 mg STAT ONE Administration Morphine Sulfate Confirm 03/17/19 22:50 Morphine Sulfate 4 Mg Inj Administered 03/17/19 22:51 Dose 4 mg .ROUTE .STK-MED ONE Lab/Rad Data: Laboratory Result Diagrams 03/17/19 23:01 03/17/19 23:01 Laboratory Results 03/18/19 03/17/19 03/17/19 Range/Units 01:00 23:10 23:01 WBC (4.0-10.5) K/mm3 RBC (4.1-5.6) M/mm3 Hgb (12.5-18.0) gm/dl Hct (42-50) % MCV (78-100) fl MCH (26-32) pg MCHC (32-36) g/dl RDW (11.5-14.0) % Plt Count (150-450) K/mm3 MPV (6-9.5) fl Gran % (36.0-66.0) % Eos # (Auto) (0-0.5) Absolute Lymphs (auto) (1.0-4.6) Absolute Monos (auto) (0.0-1.3) Lymphocytes % (24.0-44.0) % Monocytes % (0.0-12.0) % Eosinophils % (0.00-5.0) % Basophils % (0.0-0.4) % Absolute Granulocytes (1.4-6.9) Basophils # (0-0.4) PT (8.83-12.87) SECONDS INR (0.8-3.0) APTT (24.1-36.1) SECONDS Sodium (137-145) mmol/L Potassium (3.5-5.1) mmol/L Chloride (98-107) mmol/L Carbon Dioxide (22-30) mmol/L Anion Gap (5-15) MEQ/L BUN (9-20) mg/dL Creatinine (0.66-1.25) mg/dL Estimated GFR ML/MIN Glucose (74-106) mg/dL Calcium (8.4-10.2) mg/dL Magnesium (1.6-2.3) mg/dL Total Bilirubin (0.2-1.3) mg/dL AST (17-59) U/L ALT (0-50) U/L Alkaline Phosphatase (38-126) U/L Creatine Kinase (55-170) U/L Troponin I < 0.012 < 0.012 (0.000-0.034) ng/mL NT-Pro-B Natriuret Pep (0-450) pg/mL Serum Total Protein (6.3-8.2) g/dL Albumin (3.5-5.0) g/dL Urine Opiates Level NEGATIVE (NEGATIVE) Ur Methadone NEGATIVE (NEGATIVE) Urine Barbiturates NEGATIVE (NEGATIVE) Ur Phencyclidine (PCP) NEGATIVE (NEGATIVE) Urine Amphetamine NEGATIVE (NEGATIVE) U Benzodiazepine Level NEGATIVE (NEGATIVE) Urine Cocaine NEGATIVE (NEGATIVE) Urine Marijuana (THC) NEGATIVE (NEGATIVE) 03/17/19 03/17/19 03/17/19 Range/Units 23:01 23:01 23:01 WBC (4.0-10.5) K/mm3 RBC (4.1-5.6) M/mm3 Hgb (12.5-18.0) gm/dl Hct (42-50) % MCV (78-100) fl MCH (26-32) pg MCHC (32-36) g/dl RDW (11.5-14.0) % Plt Count (150-450) K/mm3 MPV (6-9.5) fl Gran % (36.0-66.0) % Eos # (Auto) (0-0.5) Absolute Lymphs (auto) (1.0-4.6) Absolute Monos (auto) (0.0-1.3) Lymphocytes % (24.0-44.0) % Monocytes % (0.0-12.0) % Eosinophils % (0.00-5.0) % Basophils % (0.0-0.4) % Absolute Granulocytes (1.4-6.9) Basophils # (0-0.4) PT 10.7 (8.83-12.87) SECONDS INR 0.95 (0.8-3.0) APTT 29.7 (24.1-36.1) SECONDS Sodium 143 (137-145) mmol/L Potassium 3.9 (3.5-5.1) mmol/L Chloride 102 (98-107) mmol/L Carbon Dioxide 29 (22-30) mmol/L Anion Gap 15.2 H (5-15) MEQ/L BUN 13 (9-20) mg/dL Creatinine 0.69 (0.66-1.25) mg/dL Estimated GFR > 60.0 ML/MIN Glucose 94 (74-106) mg/dL Calcium 9.7 (8.4-10.2) mg/dL Magnesium 2.3 (1.6-2.3) mg/dL Total Bilirubin 0.40 (0.2-1.3) mg/dL AST 23 (17-59) U/L ALT 37 (0-50) U/L Alkaline Phosphatase 40 (38-126) U/L Creatine Kinase 66 (55-170) U/L Troponin I (0.000-0.034) ng/mL NT-Pro-B Natriuret Pep 15.7 (0-450) pg/mL Serum Total Protein 7.8 (6.3-8.2) g/dL Albumin 4.6 (3.5-5.0) g/dL Urine Opiates Level (NEGATIVE) Ur Methadone (NEGATIVE) Urine Barbiturates (NEGATIVE) Ur Phencyclidine (PCP) (NEGATIVE) Urine Amphetamine (NEGATIVE) U Benzodiazepine Level (NEGATIVE) Urine Cocaine (NEGATIVE) Urine Marijuana (THC) (NEGATIVE) 03/17/19 Range/Units 23:01 WBC 8.6 (4.0-10.5) K/mm3 RBC 5.37 (4.1-5.6) M/mm3 Hgb 16.1 (12.5-18.0) gm/dl Hct 47.8 (42-50) % MCV 89.0 (78-100) fl MCH 30.0 (26-32) pg MCHC 33.7 (32-36) g/dl RDW 13.1 (11.5-14.0) % Plt Count 288 (150-450) K/mm3 MPV 9.4 (6-9.5) fl Gran % 53.8 (36.0-66.0) % Eos # (Auto) 0.22 (0-0.5) Absolute Lymphs (auto) 2.95 (1.0-4.6) Absolute Monos (auto) 0.78 (0.0-1.3) Lymphocytes % 34.3 (24.0-44.0) % Monocytes % 9.1 (0.0-12.0) % Eosinophils % 2.6 (0.00-5.0) % Basophils % 0.2 (0.0-0.4) % Absolute Granulocytes 4.64 (1.4-6.9) Basophils # 0.02 (0-0.4) PT (8.83-12.87) SECONDS INR (0.8-3.0) APTT (24.1-36.1) SECONDS Sodium (137-145) mmol/L Potassium (3.5-5.1) mmol/L Chloride (98-107) mmol/L Carbon Dioxide (22-30) mmol/L Anion Gap (5-15) MEQ/L BUN (9-20) mg/dL Creatinine (0.66-1.25) mg/dL Estimated GFR ML/MIN Glucose (74-106) mg/dL Calcium (8.4-10.2) mg/dL Magnesium (1.6-2.3) mg/dL Total Bilirubin (0.2-1.3) mg/dL AST (17-59) U/L ALT (0-50) U/L Alkaline Phosphatase (38-126) U/L Creatine Kinase (55-170) U/L Troponin I (0.000-0.034) ng/mL NT-Pro-B Natriuret Pep (0-450) pg/mL Serum Total Protein (6.3-8.2) g/dL Albumin (3.5-5.0) g/dL Urine Opiates Level (NEGATIVE) Ur Methadone (NEGATIVE) Urine Barbiturates (NEGATIVE) Ur Phencyclidine (PCP) (NEGATIVE) Urine Amphetamine (NEGATIVE) U Benzodiazepine Level (NEGATIVE) Urine Cocaine (NEGATIVE) Urine Marijuana (THC) (NEGATIVE) - Progress Progress: improved Progress Note: 03/18/19 00:39 Patient has remained in sinus rhythm throughout his time in the emergency Department and hemodynamically good condition. Pain was adequately controlled with IV medications. Patient has no focal neurologic deficits. 03/18/19 01:25 Heart Score:3, negative Troponin times two, MACE score of up to 1.6% in the next 6 weeks, low risk, can continue work-up as an outpatient 03/18/19 01:45 Patient has maintained sinus rhythm throughout his time in the emergency department on the phototypesetting equipment monitor without any signs of arrhythmia, AV blocks, ectopy, ischemia, injury or infarction. Counseled pt/family regarding: lab results, diagnosis, need for follow-up, rad results - Departure Departure Disposition: Home Clinical Impression: Syncope and collapse, Contusion of left back wall of thorax, initial encounter , Contusion of lower back and pelvis, initial encounter, Essential hypertension Closed head injury without concussion Qualifiers: Encounter type: initial encounter Qualified Code(s): S09.90XA - Unspecified injury of head, initial encounter Condition: Good Critical Care Time: No Referrals: TERESA HENDRICKSON [Primary Care Provider] - 03/18/19 Instructions: Contusion (DC), Syncope (Fainting) (DC), Preventing Falls, Minor Head Injury (DC) Additional Instructions: No specific abnormal findings were found that was abnormal on your CT of her head, x-rays of her spine, chest x-ray, lab work and EKG and cardiac monitoring. Your physician in the morning of 03/18/2019 to followup your emergency department evaluation of your brief syncopal episode. rreturn immediately back to the emergency department if he had any chest pain, shortness of breath, dizziness, headache, vomiting, neck pain, chest pain, shortness of breath or any other concerning signs or symptoms that were not present at the days and return visit for immediate reevaluation in the emergency department.
[2019-03-17] MEDS ORDERED: Sodium Chloride 0.9% 1000 ML 1,000 ML ONE (22:26)
[2019-03-17] MEDS: Sodium Chloride 0.9% 1000 ML 1,000 ML IV STA (22:29)
[2019-03-17] MEDS: BENADRYL 50 MG/ML IV ONE ×2 (22:30→22:58)
[2019-03-17] MEDS: MORPHINE SULFATE 4 MG INJ IV ONE ×2 (22:30→22:51)
[2019-03-17] MEDS ORDERED: MORPHINE SULFATE 4 MG INJ ONE (22:50)
[2019-03-17 23:00] LABS: Absolute Neutrophil Ct (ANC) 4.64 (1.4-6.9); BASOPHIL % 0.2 % (0.0-0.4); Basophil (Absolute #) 0.02 (0-0.4); Eosinophil % 2.6 % (0.00-5.0); Eosinophil (Absolute #) 0.22 (0-0.5); Hematocrit 47.8 % (42-50); Hemoglobin 16.1 gm/dl (12.5-18.0); Lymphocyte (Absolute #) 2.95 (1.0-4.6); Lymphocytes % 34.3 % (24.0-44.0); Mean Corpuscular Hgb Concent. 33.7 g/dl (32-36); Mean Platelet Volume 9.4 fl (6-9.5); Monocyte (Absolute #) 0.78 (0.0-1.3); Monocytes % 9.1 % (0.0-12.0); Neutrophil % 53.8 % (36.0-66.0); Platelet Count 288 K/mm3 (150-450); Red Blood Count 5.37 M/mm3 (4.1-5.6); Red Cell Distribution Width 13.1 % (11.5-14.0); White Blood Count 8.6 K/mm3 (4.0-10.5)
[2019-03-17 23:09] LABS: INR 0.95 (0.8-3.0); PROTIME 10.7 SECONDS (8.83-12.87)
[2019-03-17 23:12] LABS: PTT 29.7 SECONDS (24.1-36.1)
[2019-03-17 23:23] LABS: ALBUMIN 4.6 g/dL (3.5-5.0); ALKALINE PHOSPHATASE 40 U/L (38-126); ANION GAP 15.2 MEQ/L (5-15); BLOOD UREA NITROGEN 13 mg/dL (9-20); CHLORIDE 102 mmol/L (98-107); CK-Creatinine Phosphokinase 66 U/L (55-170); Calcium 9.7 mg/dL (8.4-10.2); Carbon Dioxide 29 mmol/L (22-30); Creatinine 1 0.69 mg/dL (0.66-1.25); Glucose 94 mg/dL (74-106); NT PRO BNP 15.7 pg/mL (0-450); Potassium 3.9 mmol/L (3.5-5.1); SGOT/AST 23 U/L (17-59); SGPT/ALT 37 U/L (0-50); SODIUM 143 mmol/L (137-145); Total Protein 7.8 g/dL (6.3-8.2)
[2019-03-17 23:26] LABS: Amphetamine,Urine NEGATIVE (NEGATIVE); Barbiturate,Urine NEGATIVE (NEGATIVE); Benzodiazepine,Urine NEGATIVE (NEGATIVE); Cocaine,Urine NEGATIVE (NEGATIVE); Methadone,Urine NEGATIVE (NEGATIVE); Opiate,Urine NEGATIVE (NEGATIVE); PCP,Urine NEGATIVE (NEGATIVE); THC,Urine NEGATIVE (NEGATIVE)
[2019-03-18 00:43] VITALS: O2SAT 96
[2019-03-18 02:03] VITALS: BP 146/78; PULSE 79
--- NOTE | 2019-03-18 09:04 | XRAY ---
Indication: Pain following fall. Comparison: None Single AP pelvis demonstrates tiny bilateral superior acetabular spurring. No other bony, articular, or soft tissue abnormalities.
--- NOTE | 2019-03-18 09:04 | XRAY ---
Indication: Back pain. Syncope. Comparison: June 25, 2014. PA/lateral chest again demonstrates normal heart and lungs. Bony thorax intact again with right nipple jewelry.
--- NOTE | 2019-03-18 09:06 | XRAY ---
Indication: Pain/headache following fall. Multiple contiguous axial images obtained through the head without contrast. Comparison: None Normal appearing brain parenchyma, ventricles, and bony calvarium. Visualized paranasal sinuses and mastoid air cells are clear. Impression: Normal CT head without contrast exam. Comment: Preliminary interpretation was made by [facility]. No discrepancy. CTDI 43.50
--- NOTE | 2019-03-18 09:08 | XRAY ---
Indication: Low back pain following fall. Comparison: June 23, 2016. 3 views of the lumbar spine unchanged again demonstrating normal alignment with minimal L5-S1 disc space narrowing, minimal L3-L5 anterior endplate spurring, and mild aortic calcifications. No new/acute findings.
== END 2019-03-18 02:00 | disposition home or self-care (01) ==
LOC: ED 21:21
DX: R55 Syncope and collapse (principal); S20.222A Contusion of left back wall of thorax, initial encounter; S09.90XA Unspecified injury of head, initial encounter; S30.0XXA Contusion of lower back and pelvis, initial encounter; I10 Essential (primary) hypertension; W01.198A Fall on same level from slipping, tripping and stumbling with subsequent striking against other object, initial encounter; Y93.89 Activity, other specified; Y92.89 Other specified places as the place of occurrence of the external cause
CPT/HCPCS: 36000; 36415; 70450; 71046; 72100; 72170; 80053; 80307; 82550; 83735; 83880; 84484; 85025; 85610; 85730; 93005; 93041; 94760; 96360; 96374; 99285; J2270

== ENCOUNTER 2019-03-25 23:24 | Emergency (ER) | payer MEDICARE ==
[2019-03-25 23:35] VITALS: O2SAT 95
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
[2019-03-26 00:31] VITALS: BP 157/95; PULSE 96
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
== END 2019-03-26 00:32 | disposition home or self-care (01) ==
LOC: ED 23:24
DX: S50.01XA Contusion of right elbow, initial encounter (principal); W22.8XXA Striking against or struck by other objects, initial encounter; Y93.89 Activity, other specified; Y92.9 Unspecified place or not applicable; E78.00 Pure hypercholesterolemia, unspecified; I10 Essential (primary) hypertension; G47.30 Sleep apnea, unspecified; E11.9 Type 2 diabetes mellitus without complications; Z79.4 Long term (current) use of insulin
CPT/HCPCS: 73080; 99283

== ENCOUNTER 2019-05-17 04:45 | Emergency (ER) | payer MEDICARE ==
[2019-05-17 04:58] VITALS: BP 162/107; PULSE 100; O2SAT 98
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
[2019-05-17] MEDS ORDERED: NORCO 5/325 MG PO ONE (05:32)
[2019-05-17] MEDS ORDERED: NORCO 5/325 MG ONE (05:50)
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
== END 2019-05-17 06:01 | disposition home or self-care (01) ==
LOC: ED 04:45
DX: S46.001A Unspecified injury of muscle(s) and tendon(s) of the rotator cuff of right shoulder, initial encounter (principal); Y04.0XXA Assault by unarmed brawl or fight, initial encounter
CPT/HCPCS: 73030; 73060; 73090; 99283; A9270-GY

== ENCOUNTER 2021-04-09 02:06 | Emergency (ER) | payer MEDICARE ==
[2021-04-09 02:20] VITALS: O2SAT 98
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
[2021-04-09 03:22] VITALS: BP 135/78; PULSE 108
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
== END 2021-04-09 03:16 | disposition home or self-care (01) ==
LOC: ED 02:06
DX: S93.421A Sprain of deltoid ligament of right ankle, initial encounter (principal); W10.8XXA Fall (on) (from) other stairs and steps, initial encounter; Y92.009 Unspecified place in unspecified non-institutional (private) residence as the place of occurrence of the external cause; E11.8 Type 2 diabetes mellitus with unspecified complications; Z79.4 Long term (current) use of insulin; Z79.84 Long term (current) use of oral hypoglycemic drugs; I10 Essential (primary) hypertension
CPT/HCPCS: 73610; 99283

== ENCOUNTER 2021-12-24 19:01 | Emergency (ER) | payer MEDICARE ==
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
[2021-12-24 19:32] VITALS: BP 152/89; PULSE 95; O2SAT 98
[2021-12-24] MEDS ORDERED: KEFLEX 500 MG PO ONE (19:37)
[2021-12-24] MEDS ORDERED: KEFLEX 500 MG ONE (19:44)
== END 2021-12-24 19:45 | disposition home or self-care (01) ==
LOC: ED 19:01
DX: K04.7 Periapical abscess without sinus (principal); I10 Essential (primary) hypertension; E11.42 Type 2 diabetes mellitus with diabetic polyneuropathy; Z79.4 Long term (current) use of insulin; Z79.84 Long term (current) use of oral hypoglycemic drugs; Z79.891 Long term (current) use of opiate analgesic; Z79.899 Other long term (current) drug therapy
CPT/HCPCS: 99281; A9270-GY

== ENCOUNTER 2022-07-11 17:20 | Emergency (ER) | payer BC, MEDICARE ==
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
[2022-07-11 18:18] VITALS: BP 141/85; PULSE 94; O2SAT 99
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
== END 2022-07-11 18:18 | disposition home or self-care (01) ==
LOC: ED 17:20
DX: M79.642 Pain in left hand (principal); M25.532 Pain in left wrist; E78.5 Hyperlipidemia, unspecified; E11.42 Type 2 diabetes mellitus with diabetic polyneuropathy; I10 Essential (primary) hypertension; Z79.891 Long term (current) use of opiate analgesic; Z79.85 Long-term (current) use of injectable non-insulin antidiabetic drugs; Z79.899 Other long term (current) drug therapy
CPT/HCPCS: 73110; 73130; 99282; L3908

== ENCOUNTER 2022-07-13 19:26 | Emergency (ER) | payer BC, MEDICARE ==
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
[2022-07-13 20:47] LABS: INFLUENZA A NEGATIVE (NEGATIVE); INFLUENZA B NEGATIVE (NEGATIVE); RESPIRATORY SYNCTIAL VIRUS NEGATIVE (Negative); SARS-CoV-2 Xpert Express NEGATIVE (NEGATIVE)
[2022-07-13 20:55] VITALS: BP 158/82; PULSE 98; O2SAT 100
== END 2022-07-13 20:55 | disposition home or self-care (01) ==
LOC: ED 19:26
DX: Z20.822 Contact with and (suspected) exposure to COVID-19 (principal); I10 Essential (primary) hypertension; E11.42 Type 2 diabetes mellitus with diabetic polyneuropathy; Z79.891 Long term (current) use of opiate analgesic; Z79.85 Long-term (current) use of injectable non-insulin antidiabetic drugs; Z79.899 Other long term (current) drug therapy
CPT/HCPCS: 0241U; 99282

== ENCOUNTER 2022-08-28 21:31 | Emergency (ER) | payer BC, MEDICARE ==
--- NOTE | 2022-08-28 21:39 | ERPHSYRPT ---
- History of Present Illness Time Seen by Provider: 08/28/22 21:39 Source: patient Exam Limitations: no limitations Physician History: This is a 52-year-old white male who has poor dentition and yesterday noticed dental pain in the right upper incisor region and gumline. Pain worsened today. He has not had a fever. Gumline appears to be swollen to him. Patient can take Keflex and a Z-Florian. Timing/Duration: yesterday Severity: mild (To moderate) Associated Symptoms: other (Pain with mastication) Allergies/Adverse Reactions: amoxicillin [Amoxicillin] Allergy (Severe, Verified 07/13/22 19:54) Rash celecoxib [From Celebrex] Allergy (Severe, Verified 07/13/22 19:54) Rash Penicillins Allergy (Severe, Verified 07/13/22 19:54) Rash Shellfish *RETIRED-09/04/12 [Shellfish] Allergy (Severe, Verified 07/13/22 19:54) Rash Sulfa (Sulfonamide Antibiotics) [Sulfa(Sulfonamide Antibiotics)] Allergy (Severe, Verified 07/13/22 19:54) Rash doxycycline Allergy (Mild, Verified 07/13/22 19:54) Rash clindamycin Allergy (Verified 07/13/22 19:54) Rash duloxetine [From Cymbalta] Allergy (Verified 07/13/22 19:54) Rash Iodinated Contrast Media Allergy (Verified 07/13/22 19:54) Rash kiwi Allergy (Verified 07/13/22 19:54) Swelling of Face ernesto Allergy (Verified 07/13/22 19:54) Anaphylactic Reaction milnacipran [From Savella] Allergy (Verified 07/13/22 19:54) Rash Quinolones Allergy (Verified 07/13/22 19:54) Rash Tetanus Vaccines and Toxoid Allergy (Verified 07/13/22 19:54) venom-honey bee [bee venom (honey bee)] Allergy (Verified 07/13/22 19:54) Anaphylactic Reaction Home Medications: Amlodipine Besylate 5 mg [Norvasc 5 mg] 1 tab PO DAILY 07/11/22 [History] Benazepril HCl 1 tab PO DAILY 07/11/22 [History] Carvedilol [Coreg ] 1 tab PO BID 07/11/22 [History] Dextroamphetamine/Amphetamine [Dextroamp-Amphetamin 20 mg Tab] 1 tab PO BID 07/11/22 [History] Liraglutide [Victoza 2-Florian] See Rx Instructions .ROUTE .COMPLEX 07/11/22 [History] Omeprazole 1 cap PO DAILY 07/11/22 [History] Pen Needle, Diabetic [Jessie 2Nd Gen Pen Needle] 07/11/22 [History] Simvastatin 1 tab PO DAILY 07/11/22 [History] Empagliflozin/Metformin HCl [Synjardy 12.5-1,000 mg Tablet] 1 each PO 08/28/22 [History] Insulin Glargine [Lantus Insulin] 50 units SQ HS 08/28/22 [History] Insulin Lispro [Humalog] 20 units SQ BREAKFAST 08/28/22 [History] Insulin Lispro [Humalog] 20 units SQ LUNCH 08/28/22 [History] Insulin Lispro [Humalog] 24 units SQ DINNER 08/28/22 [History] Hx Tetanus, Diphtheria Vaccination/Date Given: Yes Hx Influenza Vaccination/Date Given: No Hx Pneumococcal Vaccination/Date Given: No Travel Risk - International Travel Have you traveled outside of the country in past 3 weeks: No - Coronavirus Screening Are you exhibiting any of the following symptoms?: No Close contact with a COVID-19 positive Pt in past 14-21 Days: No - Vaccine Status Have you recieved a Covid-19 vaccination: Yes 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[employer] - Vaccination Dates Date of 2cond Vaccination (if applicable): 2020 - Review of Systems Constitutional: No Symptoms Eyes: No Symptoms Ears, Nose, & Throat: Other (Dental pain) Respiratory: No Symptoms Cardiac: No Symptoms Abdominal/Gastrointestinal: No Symptoms Genitourinary Symptoms: No Symptoms Musculoskeletal: No Symptoms Skin: No Symptoms Neurological: No Symptoms Psychological: No Symptoms Endocrine: No Symptoms Hematologic/Lymphatic: No Symptoms Immunological/Allergic: No Symptoms All Other Systems: Reviewed and Negative - Past Medical History Pertinent Past Medical History: Yes Neurological History: Migraines, Peripheral Neuropathy ENT History: No Pertinent History Cardiac History: Hypertension, Myocardial Infarction ([place]) Respiratory History: No Pertinent History Endocrine Medical History: Diabetes Type II Musculoskeletal History: Arthritis, Other GI Medical History: GERD History: No Pertinent History Psycho-Social History: Attention Deficit Disorder Male Reproductive Disorders: No Pertinent History Other Medical History: TYPE II DM, [place] ~ 2011; L SHOULDER SLAP AND PUTTY MIRI; L ACL RECONSTRUCTION - Past Surgical History Past Surgical History: Yes Neuro Surgical History: No Pertinent History Cardiac: No Pertinent History Respiratory: No Pertinent History Gastrointestinal: Hernia Repair Genitourinary: No Pertinent History Musculoskeletal: Joint Replacement, Orthopedic Surgery Male Surgical History: No Pertinent History Other Surgical History: knee x 2 NEDA - L shoulder - Social History Smoking Status: Former smoker How long have you smoked: quit many Exposure to second hand smoke: No Alcohol Use: None Drug Use: none Patient Lives Alone: No Significant Family History: diabetes - Nursing Vital Signs Nursing Vital Signs: Initial Vital Signs Temperature 98.4 F 08/28/22 21:43 Pulse Rate 107 H 08/28/22 21:43 Respiratory Rate 20 08/28/22 21:43 Blood Pressure 129/81 08/28/22 21:43 O2 Sat by Pulse Oximetry 94 L 08/28/22 21:43 Pain Scale Pain Intensity 7 - Physical Exam General Appearance: no apparent distress, alert, anxiety Eye Exam: PERRL/EOMI, eyes nml inspection Ears, Nose, Throat Exam: other (Mildly swollen gumline junction between the upper right incisor and right front tooth. 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, normal mood/affect, nml cerebellar function, nml station & gait, sensation nml Skin Exam: normal color, warm, dry Lymphatic Exam: No adenopathy SpO2 Interpretation: normal O2 Delivery: Room Air - Course Nursing assessment & vital signs reviewed: Yes Ordered Tests: Medication Summary Discontinued Medications Generic Name Dose Route Start Last Admin Trade Name Freq PRN Reason Stop Dose Admin Cephalexin HCl 500 mg 08/28/22 21:54 Cephalexin Mh 250 Mg/5 Ml Bottle PO 08/28/22 21:55 STAT ONE Oxycodone/Acetaminophen 2 tab 08/28/22 21:52 Oxycodone Hcl/Apap 5 Mg/325 Mg Tablet PO 08/28/22 21:53 SENT HOME W/ PATIENT STA Oxycodone/Acetaminophen Confirm 08/28/22 22:04 Oxycodone Hcl/Apap 5 Mg/325 Mg Tablet Administered 08/28/22 22:05 Dose 2 tab .ROUTE .STK-MED ONE - Progress Progress: unchanged Progress Note: 08/28/22 22:10 This patient's medical issue is 1 of low complexity. The level of complexity and the work-up performed is based on the patient's past medical history and review of the patient's medication list, drug allergy list and history of present illness and physical findings on examination. No work-up is necessary in this patient. Evaluation by examination has provided the diagnosis of dental infection and poor dentition. We provided the patient with Keflex 500 mg orally here in the emergency department and patient was sent home with two Percocet 5/325 tablets. A prescription for Keflex 500 mg 3 times a day for 7 days is sent to the patient's pharmacy electronically. Patient is to follow-up with a dentist for further evaluation management. Counseled pt/family regarding: diagnosis, need for follow-up Medical Desision Making - Discussion of managment Agreed on:: Treatment plan, need for follow-up - Risk of complications The pt has a mod risk of morbidity or mortality based on: Need for prescription drug management - Departure Departure Disposition: Home Clinical Impression: Infected dental caries Condition: Stable Critical Care Time: No Referrals: TERESA HENDRICKSON [Primary Care Provider] - Follow up/PCP as directed Additional Instructions: Drink plenty fluids. Take your medication as prescribed. Call a dentist tomorrow, 08/29/2022 to make arranges for follow-up appointment for definitive care. Prescriptions: Cephalexin Mh 500 mg [Keflex 500 mg] 500 mg PO TID #21 cap
[2022-08-28] MEDS ORDERED: PERCOCET TABLET 5/325MG PO STA (21:52)
[2022-08-28] MEDS ORDERED: KEFLEX 250 MG/5 ML SUSP PO ONE (21:54)
[2022-08-28 21:55] VITALS: BP 129/81; PULSE 107; O2SAT 94
[2022-08-28] MEDS ORDERED: PERCOCET TABLET 5/325MG ONE (22:04)
[2022-08-28] MEDS ORDERED: KEFLEX 500 MG PO ONE (22:07)
[2022-08-28] MEDS ORDERED: KEFLEX 500 MG ONE (22:10)
== END 2022-08-28 22:32 | disposition home or self-care (01) ==
LOC: ED 21:31
DX: K04.7 Periapical abscess without sinus (principal); K02.9 Dental caries, unspecified; K08.89 Other specified disorders of teeth and supporting structures; I10 Essential (primary) hypertension; E11.42 Type 2 diabetes mellitus with diabetic polyneuropathy; Z79.4 Long term (current) use of insulin; Z79.85 Long-term (current) use of injectable non-insulin antidiabetic drugs; Z79.899 Other long term (current) drug therapy
CPT/HCPCS: 99281; A9270-GY

== ENCOUNTER 2023-04-07 16:12 | Emergency (ER) | payer BC, MEDICARE ==
--- NOTE | 2023-04-07 16:15 | ERPHSYRPT ---
- History of Present Illness Time Seen by Provider: 04/07/23 16:15 Source: patient Exam Limitations: no limitations Physician History: This is a 52-year-old white male patient of Dr. Morton who presents with 1 week history of cough and chest congestion. In the last couple days his symptoms have been slightly worsened. His coworkers have had similar symptoms and they became more ill. He denies chest pain. He has mild shortness of breath associated with coughing. Patient has a history of diabetes, peripheral neuropathy, hyperlipidemia, gastroesophageal reflux disease and hypertension. Timing/Duration: week(s) (1), worse Cough Quality/Degree: mild, dry cough Possible Cause: no prior episodes Modifying Factors: Improves With: coughing Associated Symptoms: cough, No shortness of breath Allergies/Adverse Reactions: amoxicillin [Amoxicillin] Allergy (Severe, Verified 04/07/23 16:16) Rash celecoxib [From Celebrex] Allergy (Severe, Verified 04/07/23 16:16) Rash Penicillins Allergy (Severe, Verified 04/07/23 16:16) Rash Shellfish *RETIRED-09/04/12 [Shellfish] Allergy (Severe, Verified 04/07/23 16:16) Rash Sulfa (Sulfonamide Antibiotics) [Sulfa(Sulfonamide Antibiotics)] Allergy (Severe, Verified 04/07/23 16:16) Rash doxycycline Allergy (Mild, Verified 04/07/23 16:16) Rash clindamycin Allergy (Verified 04/07/23 16:16) Rash duloxetine [From Cymbalta] Allergy (Verified 04/07/23 16:16) Rash Iodinated Contrast Media Allergy (Verified 04/07/23 16:16) Rash kiwi Allergy (Verified 04/07/23 16:16) Swelling of Face ernesto Allergy (Verified 04/07/23 16:16) Anaphylactic Reaction milnacipran [From Savella] Allergy (Verified 04/07/23 16:16) Rash Quinolones Allergy (Verified 04/07/23 16:16) Rash Tetanus Vaccines and Toxoid Allergy (Verified 04/07/23 16:16) venom-honey bee [bee venom (honey bee)] Allergy (Verified 04/07/23 16:16) Anaphylactic Reaction Home Medications: Amlodipine Besylate 5 mg [Norvasc 5 mg] 1 tab PO DAILY 07/11/22 [History] Benazepril HCl 1 tab PO DAILY 07/11/22 [History] Carvedilol [Coreg ] 2 tab PO BID 07/11/22 [History] Dextroamphetamine/Amphetamine [Dextroamp-Amphetamin 20 mg Tab] 1 tab PO BID 07/11/22 [History] Liraglutide [Victoza 2-Florian] See Rx Instructions .ROUTE .COMPLEX 07/11/22 [History] Omeprazole 1 cap PO DAILY 07/11/22 [History] Pen Needle, Diabetic [Jessie 2Nd Gen Pen Needle] 1 ea DAILY 07/11/22 [History] Simvastatin 1 tab PO DAILY 07/11/22 [History] Empagliflozin/Metformin HCl [Synjardy 12.5-1,000 mg Tablet] 1 each PO BID 08/28/22 [History] Insulin Glargine [Lantus Insulin] 60 units SQ HS 08/28/22 [History] Insulin Lispro [Humalog] 25 units SQ BREAKFAST 08/28/22 [History] Insulin Lispro [Humalog] 25 units SQ LUNCH 08/28/22 [History] Insulin Lispro [Humalog] 30 units SQ DINNER 08/28/22 [History] Hx Tetanus, Diphtheria Vaccination/Date Given: Yes Hx Influenza Vaccination/Date Given: No Hx Pneumococcal Vaccination/Date Given: No Travel Risk - Coronavirus Screening Symptoms: Cough: New Onset Close contact with a COVID-19 positive Pt in past 14-21 Days: No - Vaccine Status Have you recieved a Covid-19 vaccination: Yes 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[facility] - Vaccination Dates Date of 2cond Vaccination (if applicable): 2020 - Review of Systems Constitutional: No Symptoms Eyes: No Symptoms Ears, Nose, & Throat: No Symptoms Respiratory: Cough, Other Cardiac: No Symptoms, Other (Chest congestion) Abdominal/Gastrointestinal: No Symptoms Genitourinary Symptoms: No Symptoms Musculoskeletal: No Symptoms Skin: No Symptoms Neurological: No Symptoms Psychological: No Symptoms Endocrine: No Symptoms Hematologic/Lymphatic: No Symptoms Immunological/Allergic: No Symptoms All Other Systems: Reviewed and Negative - Past Medical History Pertinent Past Medical History: Yes Neurological History: Migraines, Peripheral Neuropathy ENT History: No Pertinent History Cardiac History: Hypertension, Myocardial Infarction ([place]) Respiratory History: No Pertinent History Endocrine Medical History: Diabetes Type II Musculoskeletal History: Arthritis, Other GI Medical History: GERD History: No Pertinent History Psycho-Social History: Attention Deficit Disorder Male Reproductive Disorders: No Pertinent History Other Medical History: TYPE II DM, [place] ~ 2011; L SHOULDER SLAP AND PUTTY MIRI; L ACL RECONSTRUCTION - Past Surgical History Past Surgical History: Yes Neuro Surgical History: No Pertinent History Cardiac: No Pertinent History Respiratory: No Pertinent History Gastrointestinal: Hernia Repair Genitourinary: No Pertinent History Musculoskeletal: Joint Replacement, Orthopedic Surgery Male Surgical History: No Pertinent History Other Surgical History: knee x 2 NEDA - L shoulder - Social History Smoking Status: Former smoker How long have you smoked: quit many Exposure to second hand smoke: No Alcohol Use: None Drug Use: none Patient Lives Alone: No Significant Family History: diabetes - Nursing Vital Signs Nursing Vital Signs: Initial Vital Signs Pulse Rate 92 H 04/07/23 16:17 Respiratory Rate 15 04/07/23 16:17 Blood Pressure 138/71 04/07/23 16:17 O2 Sat by Pulse Oximetry 92 L 04/07/23 16:17 Pain Scale Pain Intensity 0 - Physical Exam General Appearance: no apparent distress, alert, anxiety Eye Exam: PERRL/EOMI, eyes nml inspection Ears, Nose, Throat Exam: normal ENT inspection, moist mucous membranes Neck Exam: normal inspection, non-tender, supple, full range of motion Respiratory Exam: normal breath sounds, lungs clear, airway intact, No chest tenderness, No respiratory distress Cardiovascular Exam: regular rate/rhythm, normal heart sounds, normal peripheral pulses Gastrointestinal/Abdomen Exam: soft, normal bowel sounds, No tenderness Rectal Exam: not done Back Exam: normal inspection, normal range of motion, No CVA tenderness, No vertebral tenderness Extremity Exam: normal inspection, normal range of motion, pelvis stable Neurologic Exam: alert, oriented x 3, 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, 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, normal mood/affect, nml cerebellar function, nml station & gait, sensation nml Skin Exam: normal color, warm, dry Lymphatic Exam: No adenopathy SpO2 Interpretation: normal O2 Delivery: Room Air - Course Nursing assessment & vital signs reviewed: Yes Ordered Tests: Active Orders 24 hr Category Date Time Status CHEST 1 VIEW (PORTABLE) Stat Exams 04/07/23 16:23 Taken Lab/Rad Data: Laboratory Results 04/07/23 04/07/23 Range/Units 16:42 16:42 Influenza Type A Ag NEGATIVE (NEGATIVE) Influenza Type B Ag NEGATIVE (NEGATIVE) RSV (PCR) NEGATIVE (NEGATIVE) SARS-CoV-2 (PCR) NEGATIVE (NEGATIVE) Group A Strep Antibody NOT DETECTED (NEGATIVE) - Progress Progress: unchanged Air Movement: good Progress Note: 04/07/23 16:29 This patient's medical issue is 1 of low complexity. Level complex in the workup performed based on review of the patient's past medical history, review the patient's medication list, review of the patient's drug allergy list, history of present illness and physical findings on examination. The workup in this patient includes chest x-ray, viral swabs and group A strep swab. 04/07/23 17:29 Chest x-ray was interpreted by me. I do not appreciate an acute infiltrate. There are no acute cardiopulmonary abnormalities. Blood Culture(s) Obtained: No Antibiotics given: Yes Counseled pt/family regarding: lab results, diagnosis, need for follow-up, rad results Medical Desision Making - Diagnostic Testing Diagnostic test were ordered, analyzed, and reviewed by me: Yes Radiological Interpretation: Interpreted by me, Teleradiologist Report - Risk of complications The pt has a mod risk of morbidity or mortality based on: Need for prescription drug management - Departure Departure Disposition: Home Clinical Impression: Bronchitis Condition: Stable Critical Care Time: No Referrals: TERESA MORTON [Primary Care Provider] - Follow up/PCP as directed Additional Instructions: Drink plenty of fluids. Avoid exposure to any smoke. Take your steroids as prescribed. Call your primary care physician on 04/09/2023 to make arrangements for follow-up appointment the next 3 to 5 days. Prescriptions: Prednisone 10 mg [Deltasone 10 mg] 10 mg PO TID #12 tablet
[2023-04-07 16:22] VITALS: TEMP 97.1
[2023-04-07 17:23] LABS: INFLUENZA A NEGATIVE (NEGATIVE); INFLUENZA B NEGATIVE (NEGATIVE); RESPIRATORY SYNCTIAL VIRUS NEGATIVE (NEGATIVE); SARS-CoV-2 Xpert Express NEGATIVE (NEGATIVE)
[2023-04-07] MEDS ORDERED: DELTASONE 20 MG PO ONE (17:31)
[2023-04-07] MEDS ORDERED: DELTASONE 20 MG ONE (17:44)
[2023-04-07 17:49] VITALS: BP 111/81; PULSE 88; RESP 19; O2SAT 93
--- NOTE | 2023-04-07 21:10 | XRAY ---
Indication: Cough and congestion. Comparison: March 17, 2019 Portable chest remains inflated and clear. Heart not enlarged. Bony thorax intact with new epidural leads terminating T8. Impression: Continued nonacute chest.
== END 2023-04-07 17:50 | disposition home or self-care (01) ==
LOC: ED 16:12
DX: J40 Bronchitis, not specified as acute or chronic (principal); R05.1 Acute cough; E11.42 Type 2 diabetes mellitus with diabetic polyneuropathy; E78.5 Hyperlipidemia, unspecified; I10 Essential (primary) hypertension; Z79.52 Long term (current) use of systemic steroids; Z79.84 Long term (current) use of oral hypoglycemic drugs; Z79.4 Long term (current) use of insulin; Z79.899 Other long term (current) drug therapy
CPT/HCPCS: 0241U; 71045; 87651; 99283; A9270-GY

== ENCOUNTER 2023-04-22 18:06 | Emergency (ER) | payer BC, MEDICARE ==
[2023-04-22 18:45] VITALS: TEMP 98.4
[2023-04-22 19:43] LABS: Group A Strep NOT DETECTED (NEGATIVE)
--- NOTE | 2023-04-22 19:50 | ERPHSYRPT ---
- History of Present Illness Time Seen by Provider: 04/22/23 19:07 Source: patient Exam Limitations: no limitations Patient Subjective Stated Complaint: pt here for cough, congestion, and sob for a month. was seen here 2 weeks ago for same problem and given steriods Triage Nursing Assessment: pt alert, resp easy, has dry cough, skin w.d.p. no edema noted Physician History: 52 years old male presented in the ER with off-and-on cough congestion for almost 1 month. Patient has been evaluated in the ER and outpatient, has received steroid with no significant relief. Patient reports he feels congested in the sinuses with drainage and cough productive of yellow-green sputum. Denies any difficulty breathing. No fever or chills reported. No known sick contact. Allergies/Adverse Reactions: amoxicillin [Amoxicillin] Allergy (Severe, Verified 04/22/23 18:43) Rash celecoxib [From Celebrex] Allergy (Severe, Verified 04/22/23 18:43) Rash Penicillins Allergy (Severe, Verified 04/22/23 18:43) Rash Shellfish *RETIRED-09/04/12 [Shellfish] Allergy (Severe, Verified 04/22/23 18:43) Rash Sulfa (Sulfonamide Antibiotics) [Sulfa(Sulfonamide Antibiotics)] Allergy (Severe, Verified 04/22/23 18:43) Rash doxycycline Allergy (Mild, Verified 04/22/23 18:43) Rash clindamycin Allergy (Verified 04/22/23 18:43) Rash duloxetine [From Cymbalta] Allergy (Verified 04/22/23 18:43) Rash Iodinated Contrast Media Allergy (Verified 04/22/23 18:43) Rash kiwi Allergy (Verified 04/22/23 18:43) Swelling of Face ernesto Allergy (Verified 04/22/23 18:43) Anaphylactic Reaction milnacipran [From Savella] Allergy (Verified 04/22/23 18:43) Rash Quinolones Allergy (Verified 04/22/23 18:43) Rash Tetanus Vaccines and Toxoid Allergy (Verified 04/22/23 18:43) venom-honey bee [bee venom (honey bee)] Allergy (Verified 04/22/23 18:43) Anaphylactic Reaction Home Medications: Amlodipine Besylate 5 mg [Norvasc 5 mg] 1 tab PO DAILY 07/11/22 [History] Benazepril HCl 1 tab PO DAILY 07/11/22 [History] Carvedilol [Coreg ] 2 tab PO BID 07/11/22 [History] Dextroamphetamine/Amphetamine [Dextroamp-Amphetamin 20 mg Tab] 1 tab PO BID 07/11/22 [History] Liraglutide [Victoza 2-Florian] See Rx Instructions .ROUTE .COMPLEX 07/11/22 [History] Omeprazole 1 cap PO DAILY 07/11/22 [History] Pen Needle, Diabetic [Jessie 2Nd Gen Pen Needle] 1 ea DAILY 07/11/22 [History] Simvastatin 1 tab PO DAILY 07/11/22 [History] Empagliflozin/Metformin HCl [Synjardy 12.5-1,000 mg Tablet] 1 each PO BID 08/28/22 [History] Insulin Glargine [Lantus Insulin] 60 units SQ HS 08/28/22 [History] Insulin Lispro [Humalog] 25 units SQ BREAKFAST 08/28/22 [History] Insulin Lispro [Humalog] 25 units SQ LUNCH 08/28/22 [History] Insulin Lispro [Humalog] 30 units SQ DINNER 08/28/22 [History] Hx Tetanus, Diphtheria Vaccination/Date Given: Yes Hx Influenza Vaccination/Date Given: Yes Hx Pneumococcal Vaccination/Date Given: No Travel Risk - International Travel Have you traveled outside of the country in past 3 weeks: No - Coronavirus Screening Are you exhibiting any of the following symptoms?: Yes Symptoms: Cough: New Onset, Shortness of Breath Close contact with a COVID-19 positive Pt in past 14-21 Days: No - Vaccine Status Have you recieved a Covid-19 vaccination: Yes [employer] Team [employer]: [employer] - Vaccination Dates Date of 2cond Vaccination (if applicable): 2020 - Review of Systems Constitutional: No Symptoms Eyes: No Symptoms Ears, Nose, & Throat: Nose Congestion Respiratory: Cough Cardiac: No Symptoms Abdominal/Gastrointestinal: No Symptoms Genitourinary Symptoms: No Symptoms Neurological: No Symptoms Endocrine: No Symptoms Hematologic/Lymphatic: No Symptoms - Past Medical History Pertinent Past Medical History: Yes Neurological History: Migraines, Peripheral Neuropathy ENT History: No Pertinent History Cardiac History: Hypertension, Myocardial Infarction (PR) Respiratory History: No Pertinent History Endocrine Medical History: Diabetes Type II Musculoskeletal History: Arthritis, Other GI Medical History: GERD History: No Pertinent History Psycho-Social History: Attention Deficit Disorder Male Reproductive Disorders: No Pertinent History Other Medical History: TYPE II DM, PR ~ 2011; L SHOULDER SLAP AND PUTTY MIRI; L ACL RECONSTRUCTION - Past Surgical History Past Surgical History: Yes Neuro Surgical History: No Pertinent History Cardiac: No Pertinent History Respiratory: No Pertinent History Gastrointestinal: Hernia Repair Genitourinary: No Pertinent History Musculoskeletal: Joint Replacement, Orthopedic Surgery Male Surgical History: No Pertinent History Other Surgical History: knee x 2 NEDA - L shoulder - Social History Smoking Status: Former smoker How long have you smoked: quit many Exposure to second hand smoke: No Alcohol Use: None Drug Use: none Patient Lives Alone: No Significant Family History: diabetes - Nursing Vital Signs Nursing Vital Signs: Initial Vital Signs Temperature 98.4 F 04/22/23 18:44 Pulse Rate 115 H 04/22/23 18:44 Respiratory Rate 18 04/22/23 18:44 Blood Pressure 144/86 04/22/23 18:44 O2 Sat by Pulse Oximetry 95 04/22/23 18:44 Pain Scale Pain Intensity 4 - Physical Exam General Appearance: no apparent distress, alert Eye Exam: PERRL/EOMI Ears, Nose, Throat Exam: moist mucous membranes, pharyngeal erythema Neck Exam: normal inspection, non-tender, supple, full range of motion Respiratory Exam: normal breath sounds, lungs clear Cardiovascular Exam: normal heart sounds, tachycardia Gastrointestinal/Abdomen Exam: soft, No tenderness Extremity Exam: normal inspection Neurologic Exam: alert, oriented x 3, mixer slagman II-XII nml as tested Skin Exam: normal color SpO2 Interpretation: normal SpO2: 93 O2 Delivery: Room Air Ordered Tests: Active Orders 24 hr Category Date Time Status CHEST 1 VIEW (PORTABLE) Stat Exams 04/22/23 18:56 Taken Lab/Rad Data: Laboratory Results 04/22/23 Range/Units 19:12 Influenza Type A Ag NEGATIVE (NEGATIVE) Influenza Type B Ag NEGATIVE (NEGATIVE) RSV (PCR) NEGATIVE (NEGATIVE) SARS-CoV-2 (PCR) NEGATIVE (NEGATIVE) Group A Strep Antibody NOT DETECTED (NEGATIVE) - Progress Progress: re-examined, unchanged Air Movement: good Progress Note: 04/22/23 20:50 52 years old male presented in the ER with off-and-on cough congestion for almost 1 month. Patient has been evaluated in the ER and outpatient, has received steroid with no significant relief. Patient reports he feels congested in the sinuses with drainage and cough productive of yellow-green sputum. Denies any difficulty breathing. No fever or chills reported. No known sick contact. Lungs bilateral clear to auscultation. Patient is not in any distress. Has negative COVID flu and RSV. Patient chest x-ray is negative for any acute cardiopulmonary process reviewed by me, official report is pending. I believe patient has bronchitis, I will start him on Zithromax. Recommended continue with cough medications, Tylenol/ibuprofen as needed and outpatient follow-up. Discussed signs symptoms of worsening needing return to ER which he seems understanding. Stable for discharge. Blood Culture(s) Obtained: No Antibiotics given: Yes Counseled pt/family regarding: lab results, diagnosis, need for follow-up, rad results Medical Desision Making - Diagnostic Testing Diagnostic test were ordered, analyzed, and reviewed by me: Yes Radiological Interpretation: Interpreted by me, Reviewed by me - Risk of complications The pt has a mod risk of morbidity or mortality based on: Need for prescription drug management - Departure Departure Disposition: Home Clinical Impression: Acute bronchitis Condition: Stable Critical Care Time: No Referrals: TERESA HENDRICKSON [Primary Care Provider] - Follow up with PCP 1 day Instructions: Cough, Adult (DC) Additional Instructions: Continue with your cough medication as needed. Take Tylenol as needed. Follow- up with primary care for reevaluation. Return to ER for worsening. Prescriptions: Albuterol Sulfate [Albuterol Sulfate Hfa] 8.5 gm IH Q6H PRN 7 Days #1 inh PRN Reason: Cough Azithromycin 250 mg [Zithromax 250 MG TABLET] 250 mg PO ZPACK #4 tablet
[2023-04-22 19:51] LABS: INFLUENZA A NEGATIVE (NEGATIVE); INFLUENZA B NEGATIVE (NEGATIVE); RESPIRATORY SYNCTIAL VIRUS NEGATIVE (NEGATIVE); SARS-CoV-2 Xpert Express NEGATIVE (NEGATIVE)
[2023-04-22] MEDS ORDERED: Zithromax 250 MG TABLET PO ONE (20:17)
[2023-04-22] MEDS ORDERED: Zithromax 250 MG TABLET ONE (20:24)
[2023-04-22 20:27] VITALS: BP 133/83; PULSE 100; RESP 16; O2SAT 95
--- NOTE | 2023-04-23 08:37 | XRAY ---
Indication: Cough. Short of breath. Comparison: April 07, 2023 Portable chest remains clear. Heart not enlarged. Bony thorax intact again with epidural leads. No new/acute finding.
== END 2023-04-22 20:36 | disposition home or self-care (01) ==
LOC: ED 18:06
DX: J20.9 Acute bronchitis, unspecified (principal); R05.1 Acute cough; R09.81 Nasal congestion; I10 Essential (primary) hypertension; E11.42 Type 2 diabetes mellitus with diabetic polyneuropathy; Z79.85 Long-term (current) use of injectable non-insulin antidiabetic drugs; Z79.84 Long term (current) use of oral hypoglycemic drugs; Z79.4 Long term (current) use of insulin; Z79.899 Other long term (current) drug therapy
CPT/HCPCS: 0241U; 71045; 87651; 99283; A9270-GY